=== PATIENT | female | born 1940 | race African-American/Black ===

== ENCOUNTER → 2016-09-07 | Outpatient (CLI) | payer MEDICARE, MEDICAID ==
--- NOTE | 2016-09-07 13:59 | WOMENS IMAGING REPORT ---
EXAM DESCRIPTION: BILAT SCREENING MAMMO W/CAD COMPLETED DATE/TIME: 09/07/2016 11:04 am REASON FOR STUDY: Z12.31, ROUTINE SCREENING MAMMO Z12.31 ENCNTR SCREEN MAMMOGRAM FOR MALIGNANT NEOP LASM OF NANCY COMPARISON: 2008 to 2015 TECHNIQUE: Standard craniocaudal and mediolateral oblique views of each breast recorded using [employer] l acquisition. LIMITATIONS: None. FINDINGS: No masses, calcifications or architectural distortion. No areas of suspicion. Read with the assistance of CAD. .[facility] - R2 Cenova Version 1.3 .[facility] - R2 Cenova Version 1.3 .[facility] - R2 Cenova Version 2.4 .[facility] [place] Cenova Version 2.4 .[facility] - R2 Insole [employer] Outsole Preparer Version 9.2 IMPRESSION: NORMAL MAMMOGRAM. BIRADS 1. BREAST DENSITY: c. The breasts are heterogeneously dense, which may obscure small masses. BIRAD: 1 NEGATIVE RECOMMENDATION: ROUTINE SCREENING COMMENT: The patient has been notified of the results by letter per SA requirements. Additional no tification policies are in place for contacting patient with suspicious or incomplete findings. Quality ID #[id number]: The [employer] recommends an annual screening mammogram for women aged 40 years or over. This facility utilizes a reminder system to ensure that all patients receive reminder letters, and/or direct phone calls for appointments. This includes reminders for routine scr eening mammograms, diagnostic mammograms, or other Breast Imaging Interventions when appropriate. Th is patient will be placed in the appropriate reminder system. The [employer] (ACR) has developed recommendations for screening MRI of the breast s in certain patient populations, to be used in conjunction with mammography. Breast MRI surveillanc e may be appropriate for women with more than 20% lifetime risk of developing breast cancer as deter mined by genetic testing, significant family history of the disease, or history of mantle radiation f or Hodgkins Disease. ACR Practice Guidelines 2008. TECHNICAL DOCUMENTATION: FINDING NUMBER: (1) ASSESSMENT: (1) JOB ID: [id number] [employer]- All Rights Reserved
== END ==
LOC: WI 10:32
PROVIDERS: ATTEND Internal Medicine
DX: Z12.31 Encounter for screening mammogram for malignant neoplasm of breast (principal)
CPT/HCPCS: 77067; G0202

== ENCOUNTER → 2017-09-26 | Outpatient (CLI) | payer MEDICARE, MEDICAID ==
--- NOTE | 2017-09-26 12:36 | RADIOLOGY REPORT (SQ) ---
EXAM DESCRIPTION: CHEST 2 VIEWS COMPLETED DATE/TIME: 09/26/2017 11:11 am REASON FOR STUDY: ENCOUNTER FOR OTHER PREPROCEDURAL EXAMINATION COMPARISON: October 2015 EXAM PARAMETERS: NUMBER OF VIEWS: two views TECHNIQUE: Digital Frontal and Lateral radiographic views of the chest acquired. RADIATION DOSE: NA LIMITATIONS: none FINDINGS: LUNGS AND PLEURA: No opacities, masses or pneumothorax. No pleural effusion. MEDIASTINUM AND HILAR STRUCTURES: No masses or contour abnormalities. HEART AND VASCULAR STRUCTURES: Heart normal size. No evidence for failure. Tortuous thoracic aorta is again identified. BONES: No acute findings. HARDWARE: Transvenous pacemaker is unchanged in position. OTHER: No other significant finding. IMPRESSION: NO ACUTE RADIOGRAPHIC FINDING IN THE CHEST. TECHNICAL DOCUMENTATION: JOB ID: [id number] [employer]- All Rights Reserved Reading location - IP/workstation name: [email or web address]
== END ==
LOC: RAD 10:58
PROVIDERS: ATTEND Physician Assistant
DX: Z01.818 Encounter for other preprocedural examination (principal); M32.9 Systemic lupus erythematosus, unspecified
CPT/HCPCS: 71046

== ENCOUNTER → 2017-10-07 | Outpatient (CLI) | payer MEDICARE, MEDICAID ==
[2017-10-07 12:29] LABS: HEMATOCRIT 34.3 % (36.0-47.0); HEMOGLOBIN 11.5 g/dL (12.0-15.5); MEAN CORPUSCULAR HEMOGLOBIN 27.7 pg (27.0-33.4); MEAN CORPUSCULAR HGB CONC 33.4 g/dL (32.0-36.0); MEAN CORPUSCULAR VOLUME 83 fl (80-97); PLATELET COUNT 212 10^3/uL (150-450); RED BLOOD COUNT 4.14 10^6/uL (3.72-5.28); RED CELL DISTRIBUTION WIDTH 14.8 % (11.5-14.0)
[2017-10-07 12:47] LABS: ALANINE AMINOTRANSFERASE 16 U/L (9-52); ALBUMIN 4.2 g/dL (3.5-5.0); ALKALINE PHOSPHATASE 73 U/L (38-126); ANION GAP 12 (5-19); ASPARTATE AMINO TRANSFERASE 18 U/L (14-36); BILIRUBIN,DIRECT 0.3 mg/dL (0.0-0.4); BILIRUBIN,TOTAL 0.6 mg/dL (0.2-1.3); BLOOD UREA NITROGEN 12 mg/dL (7-20); CALCIUM 9.7 mg/dL (8.4-10.2); CARBON DIOXIDE 27 mmol/L (22-30); CHLORIDE 105 mmol/L (98-107); CHOLESTEROL 184.31 mg/dL (0-200); GLUCOSE 112 mg/dL (75-110); POTASSIUM 3.6 mmol/L (3.6-5.0); SODIUM 144.1 mmol/L (137-145); TOTAL PROTEIN 8.8 g/dL (6.3-8.2); TRIGLYCERIDES 78 mg/dL (<150)
[2017-10-07 12:58] LABS: DIRECT LDL 94 mg/dL (<100)
[2017-10-07 13:07] LABS: ERYTHROCYTE SEDIMENTATION RATE 57 mm/hr (0-30)
[2017-10-07 13:08] LABS: WHITE BLOOD COUNT 1.4 10^3/uL (4.0-10.5)
[2017-10-08 11:46] LABS: PATH REVIEW PATHOLOGIST REVIEWED
== END ==
LOC: LAB 12:03
PROVIDERS: ATTEND Internal Medicine Cardiovascular Disease
DX: E78.00 Pure hypercholesterolemia, unspecified (principal); R06.02 Shortness of breath; M32.9 Systemic lupus erythematosus, unspecified; I49.3 Ventricular premature depolarization
CPT/HCPCS: 36415; 80048; 80061; 80076; 83880; 84443; 85027; 85652; 86038; 86430; 86431

== ENCOUNTER 2017-10-11 11:24 | Emergency (ER) | payer MEDICARE, MEDICAID ==
[2017-10-11 11:39] VITALS: BP 128/79
[2017-10-11] MEDS ORDERED: ASPIRIN 81 MG TABLET, CHEWABLE PO ONE (12:09)
--- NOTE | 2017-10-11 12:09 | RADIOLOGY REPORT (SQ) ---
EXAM DESCRIPTION: CHEST 2 VIEWS COMPLETED DATE/TIME: 10/11/2017 11:45 am REASON FOR STUDY: chest pain COMPARISON: None. EXAM PARAMETERS: NUMBER OF VIEWS: two views TECHNIQUE: Digital Frontal and Lateral radiographic views of the chest acquired. RADIATION DOSE: NA LIMITATIONS: none FINDINGS: LUNGS AND PLEURA: Nipple shadow overlying the right lung base. No opacities, masses or pn eumothorax. No pleural effusion. MEDIASTINUM AND HILAR STRUCTURES: Tortuous aorta. HEART AND VASCULAR STRUCTURES: Mild cardiomegaly. No evidence of failure. BONES: No acute findings. Osteopenia with old mild mid thoracic compression fractures. HARDWARE: Left subclavian pacer with leads unchanged. OTHER: No other significant finding. IMPRESSION: Mild cardiomegaly without evidence of acute cardiopulmonary disease. TECHNICAL DOCUMENTATION: JOB ID: [id number] [employer]- All Rights Reserved Reading location - IP/workstation name: [email or web address]
--- NOTE | 2017-10-11 12:10 | ER Document Report ---
ED Medical Screen (RME) - General Chief Complaint: Chest Pain > 30 Stated Complaint: CHEST PAIN Time Seen by Provider: 10/11/17 12:06 Notes: RAPID MEDICAL EVALUATION DISCLOSURE I have seen this patient as part of a Rapid Medical Evaluation and, if applicable, placed any initially appropriate orders. The patient will be seen and fully evaluated, including a full history and physical exam, by a provider ( in Main ED or Fast Track) when a room becomes available. 77-year-old female here with complaints of midsternal chest pain radiating up to the left shoulder down the left arm minimal shortness of breath lightheadedness ongoing since yesterday. She has noticed that the symptoms are worse with exertion. She has not tried anything for the symptoms. She does have a pacemaker and did see her mechanical systems control engineer last week who noted an irregular heartbeat. EXAM CTAB Irregularly irregular rhythm TRAVEL OUTSIDE OF THE [place] IN LAST 30 DAYS: No - Related Data Allergies/Adverse Reactions: denosumab [From Prolia] Allergy (Intermediate, Verified 10/11/17 11:26) "rash all over" RA med Allergy (Intermediate, Uncoded 10/11/17 11:26) "rash all over" Past Medical History - Past Medical History Cardiac Medical History: Denies: Hx Coronary Artery Disease, Hx Heart Attack, Hx Hypertension Pulmonary Medical History: Denies: Hx Asthma, Hx Bronchitis, Hx COPD, Hx Pneumonia Neurological Medical History: Denies: Hx Cerebrovascular Accident, Hx Seizures GI Medical History: Reports: Hx Ulcer - YRS AGO. Denies: Hx Hepatitis, Hx Hiatal Hernia Musculoskeltal Medical History: Reports Hx Arthritis - RA Psychiatric Medical History: Denies: Hx Depression Infectious Medical History: Denies: Hx Hepatitis Past Surgical History: Reports: Hx Hysterectomy, Hx Pacemaker - [employer]tronic. Denies: Hx Mastectomy, Hx Open Heart Surgery - Immunizations Immunizations up to date: No Hx Diphtheria, Pertussis, Tetanus Vaccination: No Physical Exam - Vital signs Vitals: Temp Pulse Resp BP Pulse Ox 98.5 F 82 20 128/79 H 98 10/11/17 11:37 10/11/17 11:37 10/11/17 11:37 10/11/17 11:37 10/11/17 11:37 Course - Vital Signs Vital signs: Temp Pulse Resp BP Pulse Ox 98.5 F 82 20 128/79 H 98 10/11/17 11:37 10/11/17 11:37 10/11/17 11:37 10/11/17 11:37 10/11/17 11:37 Doctor's Discharge - Discharge Referrals: KATIA HENLEY MD [Primary Care Provider] - Follow up as needed
[2017-10-11 12:46] LABS: HEMOGLOBIN 11.5 g/dL (12.0-15.5); MEAN CORPUSCULAR HEMOGLOBIN 27.3 pg (27.0-33.4); MEAN CORPUSCULAR HGB CONC 32.9 g/dL (32.0-36.0); MEAN CORPUSCULAR VOLUME 83 fl (80-97); PLATELET COUNT 200 10^3/uL (150-450); RED BLOOD COUNT 4.21 10^6/uL (3.72-5.28); WHITE BLOOD COUNT 1.8 10^3/uL (4.0-10.5)
[2017-10-11 12:55] LABS: ALANINE AMINOTRANSFERASE 17 U/L (9-52); ALBUMIN 4.3 g/dL (3.5-5.0); ALKALINE PHOSPHATASE 73 U/L (38-126); ANION GAP 13 (5-19); ASPARTATE AMINO TRANSFERASE 18 U/L (14-36); BILIRUBIN,DIRECT 0.3 mg/dL (0.0-0.4); BILIRUBIN,TOTAL 0.5 mg/dL (0.2-1.3); BLOOD UREA NITROGEN 12 mg/dL (7-20); CALCIUM 9.6 mg/dL (8.4-10.2); CARBON DIOXIDE 28 mmol/L (22-30); CHLORIDE 104 mmol/L (98-107); GLUCOSE 81 mg/dL (75-110); LIPASE 47.2 U/L (23-300); POTASSIUM 3.8 mmol/L (3.6-5.0); SODIUM 144.8 mmol/L (137-145); TOTAL PROTEIN 9.1 g/dL (6.3-8.2)
[2017-10-11 13:06] LABS: ABSOLUTE LYMPHOCYTES# (MANUAL) 1.2 10^3/uL (0.5-4.7); ABSOLUTE MONOCYTES # (MANUAL) 0.1 10^3/uL (0.1-1.4); ABSOLUTE NEUTROPHILS# (MANUAL) 0.4 10^3/uL (1.7-8.2); BASOPHILS % (MANUAL) 0 % (0-2); EOSINOPHILS % (MANUAL) 2 % (0-6); LYMPHOCYTES % (MANUAL) 59 % (13-45); MONOCYTES % (MANUAL) 5 % (3-13); SEGMENTED NEUTROPHILS % (MAN) 24 % (42-78); TOTAL CELLS COUNTED 100
[2017-10-11 13:24] LABS: IMMATURE MONONUCLEAR% (MANUAL) 4 % (0)
[2017-10-11 13:25] LABS: ANISOCYTOSIS SLIGHT; TOXIC GRANULATION SLIGHT
[2017-10-11 13:26] LABS: PLATELET COMMENT ADEQUATE; ROULEAUX 2+
[2017-10-11 13:27] LABS: HYPOCHROMASIA SLIGHT; POLYCHROMASIA SLIGHT
--- NOTE | 2017-10-11 13:55 | ER Document Report ---
ED General - General Chief Complaint: Chest Pain > 30 Stated Complaint: CHEST PAIN Time Seen by Provider: 10/11/17 12:06 TRAVEL OUTSIDE OF THE [place] IN LAST 30 DAYS: No - HPI Patient complains to provider of: Chest pressure Notes: Chest pressure patient coming in for evaluation chest pressure. Patient states started last night intermittent worse today therefore came to the ER for further evaluation. Patient states her doctor is Dr. Oro he was to perform some lab work though she had a low cell counts to come back to see him in a few days. Patient also has a scheduled stress test in the upcoming week. Patient denies any trauma denies any fevers chills nausea vomiting diarrhea states pain was worse with worse with exertion however while waiting to be evaluated patient burped and currently is in no pain. Patient is resting comfortably upon my evaluation - Related Data Allergies/Adverse Reactions: denosumab [From Prolia] Allergy (Intermediate, Verified 10/11/17 11:26) "rash all over" RA med Allergy (Intermediate, Uncoded 10/11/17 11:26) "rash all over" Past Medical History - Social History Smoking Status: Never Smoker Family History: Reviewed & Not Pertinent Patient has suicidal ideation: No Patient has homicidal ideation: No - Past Medical History Cardiac Medical History: Denies: Hx Coronary Artery Disease, Hx Heart Attack, Hx Hypertension Pulmonary Medical History: Denies: Hx Asthma, Hx Bronchitis, Hx COPD, Hx Pneumonia Neurological Medical History: Denies: Hx Cerebrovascular Accident, Hx Seizures Renal/ Medical History: Denies: Hx Peritoneal Dialysis GI Medical History: Reports: Hx Ulcer - YRS AGO. Denies: Hx Hepatitis, Hx Hiatal Hernia Musculoskeltal Medical History: Reports Hx Arthritis - RA Psychiatric Medical History: Denies: Hx Depression Infectious Medical History: Denies: Hx Hepatitis Past Surgical History: Reports: Hx Hysterectomy, Hx Pacemaker - [employer]tronic. Denies: Hx Mastectomy, Hx Open Heart Surgery - Immunizations Immunizations up to date: No Hx Diphtheria, Pertussis, Tetanus Vaccination: No Review of Systems - Review of Systems Constitutional: No symptoms reported EENT: No symptoms reported Cardiovascular: Chest pain Respiratory: No symptoms reported Gastrointestinal: No symptoms reported Genitourinary: No symptoms reported Female Genitourinary: No symptoms reported Musculoskeletal: No symptoms reported Skin: No symptoms reported Hematologic/Lymphatic: No symptoms reported Neurological/Psychological: No symptoms reported -: Yes All other systems reviewed and negative Physical Exam - Vital signs Vitals: Temp Pulse Resp BP Pulse Ox 98.5 F 82 20 128/79 H 98 10/11/17 11:37 10/11/17 11:37 10/11/17 11:37 10/11/17 11:37 10/11/17 11:37 Interpretation: Normal - General General appearance: Appears well, Alert - HEENT Head: Normocephalic, Atraumatic Eyes: Normal Pupils: PERRL - Respiratory Respiratory status: No respiratory distress Chest status: Nontender Breath sounds: Normal Chest palpation: Normal - Cardiovascular Rhythm: Regular Heart sounds: Normal auscultation Murmur: No - Abdominal Inspection: Normal Distension: No distension Bowel sounds: Normal Tenderness: Nontender Organomegaly: No organomegaly - Back Back: Normal, Nontender - Extremities General upper extremity: Normal inspection, Nontender, Normal color, Normal ROM , Normal temperature General lower extremity: Normal inspection, Nontender, Normal color, Normal ROM , Normal temperature, Normal weight bearing. No: David's sign - Neurological Neuro grossly intact: Yes Cognition: Normal Orientation: AAOx4 Kaitlynn Coma Scale Eye Opening: Spontaneous [place] Coma Scale Verbal: Oriented Kait[place]nn Coma Scale Motor: Obeys Commands [place] Coma Scale Total: 15 Speech: Normal Motor strength normal: LUE, RUE, LLE, RLE Sensory: Normal - Psychological Associated symptoms: Normal affect, Normal mood - Skin Skin Temperature: Warm Skin Moisture: Dry Skin Color: Normal Course - Re-evaluation Re-evalutation: 10/11/17 15:54 The patient has atypical chest pain as the patient's chest pain is not suggestive of pulmonary embolus, cardiac ischemia, aortic dissection, or other serious etiology. Given the extremely low risk of these diagnoses further testing and evaluation for these possibilities does not appear to be indicated at this time. The patient has been instructed to return if the symptoms worsen or change in any way. Was able to look at the patient's recent lab work from yesterday shows slight increase in the patient's white count unclear etiology for the patient's leukopenia however patient does have follow-up visit with her PCP for this issue. Patient agrees at this time discharge home recommend continued follow-up with her PCP - Vital Signs Vital signs: Temp Pulse Resp BP Pulse Ox 98.5 F 82 20 128/79 H 98 10/11/17 11:37 10/11/17 11:37 10/11/17 11:37 10/11/17 11:37 10/11/17 11:37 - Laboratory Result Diagrams: 10/11/17 12:21 10/11/17 12:21 Laboratory results interpreted by me: 10/11/17 10/11/17 10/11/17 12:21 12:21 12:21 WBC 1.8 L Hgb 11.5 L Hct 35.0 L RDW 15.0 H Seg Neuts % (Manual) 24 L Lymphocytes % (Manual) 59 H Immature Leukocytes % 4 H Abs Neuts (Manual) 0.4 L NT-Pro-B Natriuret Pep 532 H Total Protein 9.1 H Discharge - Discharge Clinical Impression: Chest pain, unspecified Qualifiers: Chest pain type: unspecified Qualified Code(s): R07.9 - Chest pain, unspecified Leukopenia Qualifiers: Leukopenia type: unspecified Qualified Code(s): D72.819 - Decreased white blood cell count, unspecified Condition: Good Disposition: HOME, SELF-CARE Instructions: Chest Pain of Unclear Cause ([facility]), Reflux Disease (GERD) ([facility]) Additional Instructions: Your laboratory does not show any signs of heart damage or significant etiology for your chest pain. By belching and relief of the pain he may have some underlying indigestion or acid reflux. I recommend she follow-up with your primary care physician. Laboratory studies do show that you have a low white count which actually has improved from your blood work done day prior. Please keep your appointment to see Dr. Oro for further evaluation. Return to ER for any concerning issues Referrals: KATIA HENLEY MD [EMERITUS] - Follow up as needed
--- NOTE | 2017-10-12 00:22 | EKG REPORT ---
SEVERITY:- ABNORMAL ECG - A-V DUAL-PACED COMPLEXES W/ SOME INHIBITION : Confirmed by: Isis Avendano MD 12-Oct-2017 00:21:09
== END 2017-10-11 14:26 | disposition home or self-care (01) ==
LOC: ER 11:24
DX: R07.9 Chest pain, unspecified (principal); D72.819 Decreased white blood cell count, unspecified; Z90.710 Acquired absence of both cervix and uterus; Z95.0 Presence of cardiac pacemaker
CPT/HCPCS: 93005; 99285; 36415; 83690; 85025; 80053; 84484; 83880; 71046; 93010; A9270

== ENCOUNTER → 2017-10-29 | Outpatient (CLI) | payer MEDICARE, MEDICAID ==
[~2017-10-29] MED LIST: REGADENOSON INJ 0.4 MG/5 ML DISP.SYRIN IV ONE
--- NOTE | 2017-10-30 00:01 | RADIOLOGY REPORT ---
STRESS TEST REPORT [id number] ROOM#: DATE OF SERVICE: 10/29/2017 AGE: 77Y ORDER#: [id number] REFERRING MD: KATIA HENLEY M.D. INDICATION: Preoperative cardiac clearance. PROCEDURE PERFORMED: REST/STRESS SINGLE ISOTOPE CARDIOLITE SPECT IMAGING WITH IV LEXISCAN STRESS AND GATED SPECT IMAGING. CLINICAL HISTORY: This 77-year-old female with known coronary artery disease in the RCA distribution by cath in 2006, currently has a ventricular pacemaker. CARDIAC RISK FACTORS: Include hypertension. CURRENT SYMPTOMATOLOGY: Includes vague symptom. REPORT: The patient received IV Lexiscan 0.4 mg and infused over 10 seconds then flushed. The resting heart rate was 75 BPM and increased to 90 BPM at the end of infusion. The resting blood pressure was 138/84 and decreased to 128/90 at the end of infusion. The patient had symptoms of dizziness with no hypotension. At the end of infusion she continued to have some dizziness and shortness of breath and fatigue. The resting 12-lead EKG showed ASVP, nondiagnostic. At the end of infusion same EKG pattern. Myocardial perfusion imaging was performed at rest following injection of 11.92 mCi of Cardiolite. Ten seconds after the IV Lexiscan injection, the patient was injected with 33.5 mCi of Cardiolite and flushed. Gated post stress tomographic imaging was performed 60 minutes after stress. FINDINGS: The above quality of the study is fair. The left ventricular cavity is noted to be fairly enlarged on the stress study compared to the rest study, TID ratio was 1.18 and abnormal. The SPECT images showed large areas of severe reversible ischemia in the apex, apical inferior wall (incomplete reversibility), and apical inferolateral wall (complete reversibility). And a moderate area of severe fixed perfusion defect in the basal inferoseptal wall, basal inferior wall, and basal inferolateral wall. Gated SPECT images showed no motion contraction in the basal inferior wall and severely reduced motion contraction in the apex, basal inferoseptal wall, and the inferolateral wall. The left ventricular systolic function was calculated to be 47% and mildly decreased. IMPRESSION: Myocardial perfusion imaging is abnormal. There are large areas of severe reversible ischemia in the apex, apical inferior wall, and apical inferolateral wall. There are smaller areas of fixed perfusion defect in the basal inferoseptal wall, basal inferior wall, and the basal inferolateral wall. Overall left ventricular systolic function is mildly impaired at 47% with no motion contraction in the basal inferior wall and severe reduced motion contraction in the apex, basal inferoseptal wall, and inferolateral wall. No prior study for comparison. Recommendation = cardiac cath for further risk stratification and PCI. INTERPRETING PHYSICIAN: KATIA HENLEY M.D. /: [id number] TT: [id number] ID: [id number] /: [id number] TD: [id number] JOB: [id number] cc:KATIA HENLEY M.D. > MTDD
== END ==
LOC: RAD 06:22
PROVIDERS: ATTEND Internal Medicine Cardiovascular Disease
DX: I25.10 Atherosclerotic heart disease of native coronary artery without angina pectoris (principal)
CPT/HCPCS: 93017; 78452; A9500; J2785; Q9969

== ENCOUNTER 2018-01-08 10:44 | Emergency (ER) | payer MEDICARE, MEDICAID ==
[2018-01-08 11:44] LABS: HEMATOCRIT 31.9 % (36.0-47.0); HEMOGLOBIN 10.6 g/dL (12.0-15.5); MEAN CORPUSCULAR HGB CONC 33.2 g/dL (32.0-36.0); MEAN CORPUSCULAR VOLUME 84 fl (80-97); PLATELET COUNT 204 10^3/uL (150-450); RED BLOOD COUNT 3.79 10^6/uL (3.72-5.28); WHITE BLOOD COUNT 6.6 10^3/uL (4.0-10.5)
[2018-01-08 11:48] LABS: ALANINE AMINOTRANSFERASE 8 U/L (9-52); ALKALINE PHOSPHATASE 69 U/L (38-126); ANION GAP 18 (5-19); ASPARTATE AMINO TRANSFERASE 24 U/L (14-36); BILIRUBIN,DIRECT 0.8 mg/dL (0.0-0.4); BILIRUBIN,TOTAL 1.3 mg/dL (0.2-1.3); BLOOD UREA NITROGEN 10 mg/dL (7-20); CALCIUM 8.9 mg/dL (8.4-10.2); CARBON DIOXIDE 19 mmol/L (22-30); CHLORIDE 100 mmol/L (98-107); GLUCOSE 75 mg/dL (75-110); POTASSIUM 3.5 mmol/L (3.6-5.0); SODIUM 136.9 mmol/L (137-145); TOTAL PROTEIN 9.3 g/dL (6.3-8.2)
[2018-01-08 11:49] LABS: INTERNATIONAL RATION (INR) 1.22
[2018-01-08 12:10] LABS: ABSOLUTE MONOCYTES # (MANUAL) 0.5 10^3/uL (0.1-1.4); ABSOLUTE NEUTROPHILS# (MANUAL) 2.4 10^3/uL (1.7-8.2); BASOPHILS % (MANUAL) 0 % (0-2); EOSINOPHILS % (MANUAL) 1 % (0-6); LYMPHOCYTES % (MANUAL) 24 % (13-45); MONOCYTES % (MANUAL) 7 % (3-13); NUCLEATED RED BLOOD CELLS 2 /100 WBC (0); SEGMENTED NEUTROPHILS % (MAN) 37 % (42-78); TOTAL CELLS COUNTED 100
[2018-01-08] MEDS ORDERED: NORMAL SALINE 1000 ML 1,000 ML IV ONE (12:13)
[2018-01-08 12:21] LABS: ANISOCYTOSIS 1+; OVALOCYTES SLIGHT; PLATELET COMMENT ADEQUATE; POIKILOCYTOSIS SLIGHT
[2018-01-08] MEDS ORDERED: ONDANSETRON HCL INJ/PF 4 MG/2 ML SDV IV ONE (12:22)
[2018-01-08 12:28] LABS: IMMATURE MONONUCLEAR% (MANUAL) 24 % (0)
--- NOTE | 2018-01-08 13:13 | RADIOLOGY REPORT (SQ) ---
EXAM DESCRIPTION: CHEST SINGLE VIEW COMPLETED DATE/TIME: 01/08/2018 12:43 pm REASON FOR STUDY: weakness COMPARISON: 10/11/2017 EXAM PARAMETERS: NUMBER OF VIEWS: One view. TECHNIQUE: Single frontal radiographic view of the chest acquired. RADIATION DOSE: NA LIMITATIONS: None. FINDINGS: LUNGS AND PLEURA: No opacities, masses or pneumothorax. No pleural effusion. MEDIASTINUM AND HILAR STRUCTURES: No masses. Contour normal. HEART AND VASCULAR STRUCTURES: Heart is slightly enlarged. No failure. This is stable. BONES: No acute findings. HARDWARE: Battery pack and leads are in place. OTHER: No other significant finding. IMPRESSION: Stable cardiomegaly. No acute findings. TECHNICAL DOCUMENTATION: JOB ID: [id number] [employer]- All Rights Reserved Reading location - IP/workstation name: [email or web address]
--- NOTE | 2018-01-08 14:52 | RADIOLOGY REPORT (SQ) ---
EXAM DESCRIPTION: CT SOFT TISSUE NECK WITH COMPLETED DATE/TIME: 01/08/2018 2:38 pm REASON FOR STUDY: left neck mass, tenderness COMPARISON: CT brain 10/20/2015 TECHNIQUE: Post IV contrasted scanning from skull base through lung apices with review of bone, soft tissue and lung windows. Reconstructed coronal and sagittal MPR images reviewed. All images stored on PACS. All CT scanners at this facility use dose modulation, iterative reconstruction, and/or weight based d osing when appropriate to reduce radiation dose to as low as reasonably achievable (ALARA). [facility]: Dose Right [facility]: CareDose [facility]: Dose Right [facility]: Teradose 4D [facility]: PenBlade CONTRAST TYPE AND DOSE: contrast/concentration: Isovue 350.00 mg/ml; Total Contrast Delivered: 75.0 ml; Total Saline Delivered: 55.0 ml RENAL FUNCTION: Creatinine 0.8 RADIATION DOSE: CT Rad equipment meets quality standard of care and radiation dose reduction techniq ues were employed. CTDIvol: 12.5 mGy. DLP: 398 mGy-cm. . LIMITATIONS: None. FINDINGS: SKULL BASE: Inferior brain parenchyma unremarkable. MAJOR SALIVARY GLANDS: No solid or cystic masses. No inflammatory changes. LYMPHADENOPATHY: There is mild cervical adenopathy as follows: 3 x 1.5 cm right submandibular lymph node axial image 49 1.8 x 1 cm right jugulodigastric lymph node axial image 47 4 x 2 cm left submandibular lymph node axial image 51 2 x 0.8 cm left posterior triangle lymph node axial image 42. MUCOSAL MASSES OR ASYMMETRY: No mucosal masses or asymmetry. No airway compromise LARYNX/CORDS: No abnormal findings. VASCULAR STRUCTURES: The major vessels are patent. LUNG APICES: Clear. BONES: No fracture or malalignment. No high-grade central or foraminal stenosis THYROID: Normal size. No masses. PARANASAL SINUSES: Clear. OTHER: No other significant finding. IMPRESSION: Upper cervical adenopathy. Palpable abnormality on the left likely correlates with an e nlarged left submandibular lymph node TECHNICAL DOCUMENTATION: JOB ID: [id number] Quality ID # [id number]: Final reports with documentation of one or more dose reduction techniques (e.g., Au tomated exposure control, adjustment of the mA and/or kV according to patient size, use of iterative reconstruction technique) 2010 [employer]- All Rights Reserved Reading location - IP/workstation name: [email or web address]
--- NOTE | 2018-01-08 15:48 | ER Document Report ---
ED General - General Chief Complaint: Mouth Problem Stated Complaint: MOUTH PAIN Time Seen by Provider: 01/08/18 11:12 Notes: Patient is a 77-year-old female that presents to the emergency department for chief complaint of mouth pain, nausea and vomiting. Patient states that she is overall not been feeling that well over the last several days, she recently had her teeth pulled about 1 week ago, had all of her upper teeth pulled. She has had decreased appetite as a result, because of the pain in her mouth. She describes the pain is worse on the left side of her mouth with chewing, denies having any fevers or chills, but noticed some swelling in her neck on the left side this morning as well. She denies noting any chest pain, shortness of breath, difficulty breathing, dysuria or hematuria. He has been experiencing some diarrhea associated with her nausea and vomiting. But denies having any blood in the stool, or vomiting, or abdominal pain. Past Medical History: Sick sinus syndrome status post pacemaker placement, lupus Past Surgical History: Pacemaker placement, dental extractions Social History: Denies tobacco, alcohol or drug use, currently lives at home with family. Family History: Reviewed and noncontributory for presenting illness Allergies: Reviewed, see documented allergy list. REVIEW OF SYSTEMS: Unless otherwise stated in this report the patient's positive and negative responses for review of systems for constitutional, eyes, ENT, cardiovascular, respiratory, gastrointestinal, neurological, genitourinary, musculoskeletal, and integumentary systems and related systems to the presenting problem are either as stated in the HPI or were not pertinent or were negative for the symptoms and/or complaints related to the presenting medical problem. PHYSICAL EXAMINATION: Vital signs reviewed, nursing noted reviewed. GENERAL: Elderly female and in no acute distress. HEAD: Atraumatic, normocephalic. EYES: Eyes appear normal, extraocular movements intact, sclera anicteric, conjunctiva are normal. ENT: nares patent, oropharynx clear without exudates. Moist mucous membranes. Edentulous in the upper teeth, no abscess present, noted to have cracked teeth in the lower teeth on the left, without discrete abscess noted. NECK: Normal range of motion, left-sided submandibular, and cervical lymphadenopathy, none on the right. LUNGS: Breath sounds clear to auscultation bilaterally and equal. No wheezes rales or rhonchi. HEART: Regular rate and rhythm without murmurs ABDOMEN: Soft, mild epigastric discomfort, normoactive bowel sounds. No rebound , guarding, or rigidity. No masses appreciated. EXTREMITIES: Nontender, good range of motion, no pitting or edema. NEUROLOGICAL: No focal neurological deficits. Moves all extremities spontaneously Motor and sensory grossly intact on exam. PSYCH: Normal mood, normal affect. SKIN: Warm, Dry, normal turgor, no rashes or lesions noted on exposed skin TRAVEL OUTSIDE OF THE [place] IN LAST 30 DAYS: No - Related Data Allergies/Adverse Reactions: denosumab [From Prolia] Allergy (Intermediate, Verified 10/11/17 11:26) "rash all over" RA med Allergy (Intermediate, Uncoded 10/11/17 11:26) "rash all over" Past Medical History - Social History Smoking Status: Never Smoker Family History: Reviewed & Not Pertinent Patient has suicidal ideation: No Patient has homicidal ideation: No - Past Medical History Cardiac Medical History: Denies: Hx Coronary Artery Disease, Hx Heart Attack, Hx Hypertension Pulmonary Medical History: Denies: Hx Asthma, Hx Bronchitis, Hx COPD, Hx Pneumonia Neurological Medical History: Denies: Hx Cerebrovascular Accident, Hx Seizures Renal/ Medical History: Denies: Hx Peritoneal Dialysis GI Medical History: Reports: Hx Ulcer - YRS AGO. Denies: Hx Hepatitis, Hx Hiatal Hernia Musculoskeletal Medical History: Reports Hx Arthritis - RA Psychiatric Medical History: Denies: Hx Depression Infectious Medical History: Denies: Hx Hepatitis Past Surgical History: Reports: Hx Hysterectomy, Hx Pacemaker - Medtronic. Denies: Hx Mastectomy, Hx Open Heart Surgery - Immunizations Immunizations up to date: No Hx Diphtheria, Pertussis, Tetanus Vaccination: No Physical Exam - Vital signs Vitals: Temp 99.9 F 01/08/18 11:05 Course - Re-evaluation Re-evalutation: Patient seen and examined vital signs reviewed. Laboratory data and imaging were ordered as appropriate for the patient's presenting symptoms and complaint, with consideration of any critical or life threatening conditions that may be associated with their obtained history and exam as noted above. Patient was treated with IV fluids and Zofran Results were reviewed when available and demonstrated essentially unremarkable blood work, anemia appears to be at baseline, renal function normal The patient was re-evaluated and was improved Evaluation was most consistent with gastroenteritis, lymphadenopathy likely reactive secondary to patient's multiple dental extractions, but we will treat her with an antibiotic for possible early dental infection. Patient be discharged home on Keflex, and Phenergan, advised to follow-up with her primary care physician. Results were discussed with the patient at this point, after careful consideration I feel that that patient can be discharged from the emergency department, the patient was educated treatments and reasons to return to the emergency department based on their presumed diagnosis as noted above, they were advised to followup with a primary care physician in 2-3 days. Patient was agreeable to plan of care. *Note is created using voice recognition software and may contain spelling, syntax or grammatical errors. Laboratory 01/08/18 01/08/18 01/08/18 10:50 10:50 10:50 WBC 6.6 RBC 3.79 Hgb 10.6 L Hct 31.9 L MCV 84 MCH 28.0 MCHC 33.2 RDW 17.0 H Plt Count 204 Total Counted 100 Seg Neutrophils % Not Reportable Seg Neuts % (Manual) 37 L Lymphocytes % Not Reportable Lymphocytes % (Manual) 24 Atypical Lymphs % 7 Monocytes % Not Reportable Monocytes % (Manual) 7 Eosinophils % Not Reportable Eosinophils % (Manual) 1 Basophils % Not Reportable Basophils % (Manual) 0 Immature Leukocytes % 24 H Absolute Neutrophils Not Reportable Abs Neuts (Manual) 2.4 Absolute Lymphocytes Not Reportable Abs Lymphs (Manual) 2.0 Absolute Monocytes Not Reportable Abs Monocytes (Manual) 0.5 Absolute Eosinophils Not Reportable Absolute Eos (Manual) 0.1 Absolute Basophils Not Reportable Abs Basophils (Manual) 0.0 Nucleated RBCs 2 Platelet Comment ADEQUATE Poikilocytosis SLIGHT Anisocytosis 1+ Ovalocytes SLIGHT PT 16.0 H INR 1.22 Sodium 136.9 L Potassium 3.5 L Chloride 100 Carbon Dioxide 19 L Anion Gap 18 BUN 10 Creatinine 0.79 Est GFR ( Amer) > 60 Est GFR (Non-Af Amer) > 60 Glucose 75 POC Glucose Lactic Acid Calcium 8.9 Total Bilirubin 1.3 Direct Bilirubin 0.8 H Neonat Total Bilirubin Not Reportable Neonat Direct Bilirubin Not Reportable Neonat Indirect Bili Not Reportable AST 24 ALT 8 L Alkaline Phosphatase 69 Total Protein 9.3 H Albumin 4.0 Slides for Path Review PATHOLOGIST REVIEWED 01/08/18 01/08/18 10:50 11:39 WBC RBC Hgb Hct MCV MCH MCHC RDW Plt Count Total Counted Seg Neutrophils % Seg Neuts % (Manual) Lymphocytes % Lymphocytes % (Manual) Atypical Lymphs % Monocytes % Monocytes % (Manual) Eosinophils % Eosinophils % (Manual) Basophils % Basophils % (Manual) Immature Leukocytes % Absolute Neutrophils Abs Neuts (Manual) Absolute Lymphocytes Abs Lymphs (Manual) Absolute Monocytes Abs Monocytes (Manual) Absolute Eosinophils Absolute Eos (Manual) Absolute Basophils Abs Basophils (Manual) Nucleated RBCs Platelet Comment Poikilocytosis Anisocytosis Ovalocytes PT INR Sodium Potassium Chloride Carbon Dioxide Anion Gap BUN Creatinine Est GFR ( Amer) Est GFR (Non-Af Amer) Glucose POC Glucose 72 Lactic Acid 1.8 Calcium Total Bilirubin Direct Bilirubin Neonat Total Bilirubin Neonat Direct Bilirubin Neonat Indirect Bili AST ALT Alkaline Phosphatase Total Protein Albumin Slides for Path Review - Vital Signs Vital signs: Temp Pulse Resp BP Pulse Ox 99.9 F 23 H 124/79 96 01/08/18 11:05 01/08/18 15:00 01/08/18 14:01 01/08/18 15:00 - Laboratory Result Diagrams: 01/08/18 10:50 01/08/18 10:50 Laboratory results interpreted by me: 01/08/18 01/08/18 01/08/18 10:50 10:50 10:50 Hgb 10.6 L Hct 31.9 L RDW 17.0 H Seg Neuts % (Manual) 37 L Immature Leukocytes % 24 H PT 16.0 H Sodium 136.9 L Potassium 3.5 L Carbon Dioxide 19 L Direct Bilirubin 0.8 H ALT 8 L Total Protein 9.3 H - EKG Interpretation by Me Additional EKG results interpreted by me: EKG demonstrates ventricular paced rhythm, with a ventricular rate of 94 bpm, QTC 551 ms, left axis deviation, T wave inversions in leads I, aVL, this is compared with prior EKG from 10/11/2017 without significant change. Discharge - Discharge Clinical Impression: Dental infection, Cervical lymphadenitis, Gastroenteritis Condition: Stable Disposition: HOME, SELF-CARE Instructions: Dental Infection or Abscess ([facility]), Gastroenteritis (adult) ([facility]) Additional Instructions: Please return to the emergency department if you have any worsening, or concern of your symptoms. Please return to the emergency department if you develop chest pain, difficulty breathing, severe abdominal pain, or ongoing vomiting. Please follow-up with your primary care physician in 2-3 days and any other recommended physicians. If prescribed, take all medications as directed. If you have any questions or concerns do not hesitate to return the emergency department for evaluation. Prescriptions: Cephalexin Monohydrate [Keflex 500 mg Capsule] 500 mg PO TID #21 capsule Promethazine HCl [Phenergan 25 mg Tablet] 0.5 tab PO Q6H PRN #15 tablet PRN Reason: Referrals: KATIA HENLEY MD [Primary Care Provider] - Follow up in 3-5 days
[2018-01-08 16:53] LABS: APPEARANCE,URINE CLEAR; BILIRUBIN,URINE NEGATIVE (NEGATIVE); COLOR,URINE YELLOW; GLUCOSE, URINE NEGATIVE (NEGATIVE); KETONES,URINE 80 mg/dL (NEGATIVE); LEUKOCYTE ESTERASE,URINE NEGATIVE (NEGATIVE); NITRITE,URINE NEGATIVE (NEGATIVE); PROTEIN,URINE 30 mg/dL (NEGATIVE); URINE SPECIFIC GRAVITY 1.038
[2018-01-08 16:59] VITALS: BP 137/93
--- NOTE | 2018-01-08 19:37 | EKG REPORT ---
SEVERITY:- ABNORMAL ECG - ATRIAL-SENSED VENTRICULAR-PACED COMPLEXES : Confirmed by: Isis Avendano MD 08-Jan-2018 19:36:31
[2018-01-09 15:32] LABS: PATH REVIEW PATHOLOGIST REVIEWED
== END 2018-01-08 16:52 | disposition home or self-care (01) ==
LOC: ER 10:44
DX: K52.9 Noninfective gastroenteritis and colitis, unspecified (principal); I88.9 Nonspecific lymphadenitis, unspecified; K04.7 Periapical abscess without sinus; K13.79 Other lesions of oral mucosa; R11.2 Nausea with vomiting, unspecified; Z98.818 Other dental procedure status; Z95.0 Presence of cardiac pacemaker; Z90.710 Acquired absence of both cervix and uterus
CPT/HCPCS: 93005; 99284; 96361; 51701; 96374; 36415; 87040; 87086; 82962; 85025; 85610; 80053; 81001; 83605; 71045; 70491; 93010; J2405

== ENCOUNTER 2018-01-09 16:36 | Emergency (ER) | payer MEDICARE, MEDICAID ==
[2018-01-09 16:54] VITALS: BP 105/76
[2018-01-09 19:47] LABS: HEMATOCRIT 30.4 % (36.0-47.0); HEMOGLOBIN 10.2 g/dL (12.0-15.5); MEAN CORPUSCULAR HGB CONC 33.5 g/dL (32.0-36.0); MEAN CORPUSCULAR VOLUME 84 fl (80-97); PLATELET COUNT 191 10^3/uL (150-450); RED BLOOD COUNT 3.63 10^6/uL (3.72-5.28); RED CELL DISTRIBUTION WIDTH 17.2 % (11.5-14.0); WHITE BLOOD COUNT 10.8 10^3/uL (4.0-10.5)
[2018-01-09 19:56] LABS: INTERNATIONAL RATION (INR) 1.19; PROTHROMBIN TIME 15.7 SEC (11.4-15.4)
[2018-01-09 19:57] LABS: FIBRINOGEN 388 mg/dL (209-497); PARTIAL THROMBOPLASTIN TIME 33.4 SEC (23.5-35.8)
[2018-01-09 20:01] LABS: ALANINE AMINOTRANSFERASE 13 U/L (9-52); ALBUMIN 3.7 g/dL (3.5-5.0); ALKALINE PHOSPHATASE 57 U/L (38-126); ANION GAP 12 (5-19); ASPARTATE AMINO TRANSFERASE 23 U/L (14-36); BILIRUBIN,DIRECT 0.5 mg/dL (0.0-0.4); BILIRUBIN,TOTAL 0.8 mg/dL (0.2-1.3); BLOOD UREA NITROGEN 15 mg/dL (7-20); CARBON DIOXIDE 25 mmol/L (22-30); CHLORIDE 98 mmol/L (98-107); GLUCOSE 95 mg/dL (75-110); POTASSIUM 3.2 mmol/L (3.6-5.0); SODIUM 135.4 mmol/L (137-145); TOTAL PROTEIN 8.7 g/dL (6.3-8.2)
[2018-01-09 20:32] LABS: ABSOLUTE LYMPHOCYTES# (MANUAL) 2.9 10^3/uL (0.5-4.7); ABSOLUTE MONOCYTES # (MANUAL) 0.3 10^3/uL (0.1-1.4); ABSOLUTE NEUTROPHILS# (MANUAL) 1.9 10^3/uL (1.7-8.2); BASOPHILS % (MANUAL) 0 % (0-2); EOSINOPHILS % (MANUAL) 0 % (0-6); IMMATURE MONONUCLEAR% (MANUAL) 52 % (0); LYMPHOCYTES % (MANUAL) 17 % (13-45); MONOCYTES % (MANUAL) 3 % (3-13); SEGMENTED NEUTROPHILS % (MAN) 18 % (42-78); TOTAL CELLS COUNTED 100; TOXIC GRANULATION SLIGHT
[2018-01-09 20:33] LABS: ANISOCYTOSIS 1+; HYPOCHROMASIA SLIGHT; OVALOCYTES SLIGHT; PLATELET COMMENT ADEQUATE; POIKILOCYTOSIS SLIGHT
[2018-01-09] MEDS ORDERED: POTASSIUM CHLORIDE 10 MEQ CAPSULE.ER PO ONE (20:59)
--- NOTE | 2018-01-09 21:01 | ER Document Report ---
ED General - General Chief Complaint: Abnormal Lab Results Stated Complaint: NAUSEA,WEAKNESS Time Seen by Provider: 01/09/18 18:17 Notes: Patient is a 77-year-old female that presents to the emergency department for chief complaint of abnormal labs. Patient was seen in the emergency department yesterday, for nausea and overall not feeling well, was noted to have increased lymphocytes in her blood, this was sent for evaluation by the pathologist, who noted that the patient a greater than 20% blasts in her blood, patient was called, to come back to the emergency department to be reevaluated, given this is likely acute leukemia. Patient states she is still been feeling not well, but denies any further vomiting, denies any pain at this time. Past Medical History: Sick sinus syndrome Past Surgical History: Pacemaker placement, multiple dental extractions Social History: Denies current tobacco, alcohol or drug use, lives at home with family Family History: Reviewed and noncontributory for presenting illness Allergies: Reviewed, see documented allergy list. REVIEW OF SYSTEMS: Unless otherwise stated in this report the patient's positive and negative responses for review of systems for constitutional, eyes, ENT, cardiovascular, respiratory, gastrointestinal, neurological, genitourinary, musculoskeletal, and integumentary systems and related systems to the presenting problem are either as stated in the HPI or were not pertinent or were negative for the symptoms and/or complaints related to the presenting medical problem. PHYSICAL EXAMINATION: Vital signs reviewed, nursing noted reviewed. GENERAL: Elderly female, in no acute distress HEAD: Atraumatic, normocephalic. EYES: Eyes appear normal, extraocular movements intact, sclera anicteric, conjunctiva are normal. ENT: nares patent, oropharynx clear without exudates. Moist mucous membranes. NECK: Normal range of motion, supple without lymphadenopathy LUNGS: Breath sounds clear to auscultation bilaterally and equal. No wheezes rales or rhonchi. HEART: Regular rate and rhythm without murmurs ABDOMEN: Soft, nontender, normoactive bowel sounds. No rebound, guarding, or rigidity. No masses appreciated. EXTREMITIES: Nontender, good range of motion, no pitting or edema. NEUROLOGICAL: No focal neurological deficits. Moves all extremities spontaneously Motor and sensory grossly intact on exam. PSYCH: Normal mood, normal affect. SKIN: Warm, Dry, normal turgor, no rashes or lesions noted on exposed skin TRAVEL OUTSIDE OF THE [place] IN LAST 30 DAYS: No - Related Data Allergies/Adverse Reactions: denosumab [From Prolia] Allergy (Intermediate, Verified 01/09/18 17:10) "rash all over" RA med Allergy (Intermediate, Uncoded 01/09/18 17:10) "rash all over" Past Medical History - Social History Smoking Status: Never Smoker Family History: Reviewed & Not Pertinent - Past Medical History Cardiac Medical History: Denies: Hx Coronary Artery Disease, Hx Heart Attack, Hx Hypertension Pulmonary Medical History: Denies: Hx Asthma, Hx Bronchitis, Hx COPD, Hx Pneumonia Neurological Medical History: Denies: Hx Cerebrovascular Accident, Hx Seizures Renal/ Medical History: Denies: Hx Peritoneal Dialysis GI Medical History: Reports: Hx Ulcer - YRS AGO. Denies: Hx Hepatitis, Hx Hiatal Hernia Musculoskeletal Medical History: Reports Hx Arthritis - RA Psychiatric Medical History: Denies: Hx Depression Infectious Medical History: Denies: Hx Hepatitis Past Surgical History: Reports: Hx Hysterectomy, Hx Pacemaker - [employer]tr[employer]. Denies: Hx Mastectomy, Hx Open Heart Surgery - Immunizations Immunizations up to date: No Hx Diphtheria, Pertussis, Tetanus Vaccination: No Physical Exam - Vital signs Vitals: Temp Pulse Resp BP Pulse Ox 98.2 F 99 18 105/76 93 01/09/18 16:50 01/09/18 16:50 01/09/18 16:50 01/09/18 16:50 01/09/18 16:50 Course - Re-evaluation Re-evalutation: Patient seen and examined vital signs reviewed. Laboratory data and imaging were ordered as appropriate for the patient's presenting symptoms and complaint, with consideration of any critical or life threatening conditions that may be associated with their obtained history and exam as noted above. Patient was treated with potassium replacement Results were reviewed when available and demonstrated mild hypokalemia, increased percent of lymphocytes, no neutropenia The patient was re-evaluated and was stable Evaluation was most consistent with acute leukemia, this was discussed with Dr. Sina Pollard at [facility] oncology, recommended that if the patient did not have acute DIC, which she did not based on her blood work, normal fibrinogen , PTT and PT, that she can be discharged to follow-up, the patient's information was given to him, and they will call to schedule an appointment for the patient early next week, patient was agreeable to this plan of care made aware. I also did discuss this with the oncologist that was environmental projects advisor from this facility, who did recommend calling [facility] or another tertiary facility given that the patient had acute leukemia and required specialized treatment. Results were discussed with the patient at this point, after careful consideration I feel that that patient can be discharged from the emergency department, the patient was educated treatments and reasons to return to the emergency department based on their presumed diagnosis as noted above, they were advised to followup with a primary care physician in 2-3 days. Patient was agreeable to plan of care. *Note is created using voice recognition software and may contain spelling, syntax or grammatical errors. Laboratory 01/09/18 01/09/18 01/09/18 19:30 19:30 19:30 WBC 10.8 H RBC 3.63 L Hgb 10.2 L Hct 30.4 L MCV 84 MCH 28.0 MCHC 33.5 RDW 17.2 H Plt Count 191 Total Counted 100 Seg Neutrophils % Not Reportable Seg Neuts % (Manual) 18 L Lymphocytes % Not Reportable Lymphocytes % (Manual) 17 Atypical Lymphs % 10 Monocytes % Not Reportable Monocytes % (Manual) 3 Eosinophils % Not Reportable Eosinophils % (Manual) 0 Basophils % Not Reportable Basophils % (Manual) 0 Immature Leukocytes % 52 H Absolute Neutrophils Not Reportable Abs Neuts (Manual) 1.9 Absolute Lymphocytes Not Reportable Abs Lymphs (Manual) 2.9 Absolute Monocytes Not Reportable Abs Monocytes (Manual) 0.3 Absolute Eosinophils Not Reportable Absolute Eos (Manual) 0.0 Absolute Basophils Not Reportable Abs Basophils (Manual) 0.0 Toxic Granulation SLIGHT Platelet Comment ADEQUATE Hypochromasia SLIGHT Poikilocytosis SLIGHT Anisocytosis 1+ Microcytosis SLIGHT Ovalocytes SLIGHT PT 15.7 H INR 1.19 APTT 33.4 Fibrinogen 388 Sodium 135.4 L Potassium 3.2 L Chloride 98 Carbon Dioxide 25 Anion Gap 12 BUN 15 Creatinine 0.86 Est GFR ( Amer) > 60 Est GFR (Non-Af Amer) > 60 Glucose 95 Calcium 9.0 Total Bilirubin 0.8 Direct Bilirubin 0.5 H Neonat Total Bilirubin Not Reportable Neonat Direct Bilirubin Not Reportable Neonat Indirect Bili Not Reportable AST 23 ALT 13 Alkaline Phosphatase 57 Total Protein 8.7 H Albumin 3.7 - Vital Signs Vital signs: Temp Pulse Resp BP Pulse Ox 98.2 F 99 18 105/76 93 01/09/18 16:50 01/09/18 16:50 01/09/18 16:50 01/09/18 16:50 01/09/18 16:50 - Laboratory Result Diagrams: 01/09/18 19:30 01/09/18 19:30 Laboratory results interpreted by me: 01/09/18 01/09/18 01/09/18 19:30 19:30 19:30 WBC 10.8 H RBC 3.63 L Hgb 10.2 L Hct 30.4 L RDW 17.2 H Seg Neuts % (Manual) 18 L Immature Leukocytes % 52 H PT 15.7 H Sodium 135.4 L Potassium 3.2 L Direct Bilirubin 0.5 H Total Protein 8.7 H Discharge - Discharge Clinical Impression: Hypokalemia Leukemia Qualifiers: Leukemia type: unspecified Leukemia Active/Remission status: without remission Qualified Code(s): C95.90 - Leukemia, unspecified not having achieved remission Condition: Stable Disposition: HOME, SELF-CARE Instructions: Anemia ([facility]) Additional Instructions: please follow-up with [facility] DR. POLLARD. His office will call for follow- up appointment tomorrow, and hopefully see you this upcoming Saturday. Referrals: HUMZA DURAND MD [Primary Care Provider] - Follow up as needed
== END 2018-01-09 21:22 | disposition home or self-care (01) ==
LOC: ER 16:36
DX: E87.6 Hypokalemia (principal); C95.90 Leukemia, unspecified not having achieved remission; R11.0 Nausea; I49.5 Sick sinus syndrome; Z95.0 Presence of cardiac pacemaker; Z88.8 Allergy status to other drugs, medicaments and biological substances
CPT/HCPCS: 99285; 36415; 85025; 85384; 85610; 85730; 80053; A9270

== ENCOUNTER 2018-02-10 07:14 | Day surgery (SDC) | payer MEDICARE, MEDICAID ==
[~2018-02-10 07:14] MED LIST changes: +CEFAZOLIN 1 GM/D5W RTU 1 GM/50 ML RTUPB IV PRN; +DIAZEPAM 5 MG TABLET PO PRN; +OXYCODONE-ACETAMINOPHEN 5-325 MG TABLET PO PRN; -REGADENOSON INJ 0.4 MG/5 ML DISP.SYRIN IV ONE
[2018-02-10] MEDS ORDERED: CEFAZOLIN 1 GM/D5W RTU 1 GM/50 ML RTUPB IV ONE (07:31)
[2018-02-10] MEDS ORDERED: DIAZEPAM 5 MG TABLET ONE (07:31)
[2018-02-10] MEDS ORDERED: OXYCODONE-ACETAMINOPHEN 5-325 MG TABLET ONE (07:31)
[2018-02-10 08:39] LABS: HEMATOCRIT 27.5 % (36.0-47.0); HEMOGLOBIN 9.3 g/dL (12.0-15.5); MEAN CORPUSCULAR VOLUME 88 fl (80-97); PLATELET COUNT 119 10^3/uL (150-450); RED BLOOD COUNT 3.11 10^6/uL (3.72-5.28); RED CELL DISTRIBUTION WIDTH 16.3 % (11.5-14.0); WHITE BLOOD COUNT 2.5 10^3/uL (4.0-10.5)
--- NOTE | 2018-02-10 08:56 | RADIOLOGY REPORT (SQ) ---
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 NUMBER OF VIEWS: One view. TECHNIQUE: Single frontal radiographic view of the chest acquired. LIMITATIONS: None. FINDINGS: LUNGS AND PLEURA: No opacities, masses or pneumothorax. No pleural effusion. MEDIASTINUM AND HILAR STRUCTURES: No masses. Contour normal. HEART AND VASCULAR STRUCTURES: Heart enlarged without failure. Normal vasculature. BONES: No acute findings. HARDWARE: Pacemaker. OTHER: No other significant finding. IMPRESSION: HEART ENLARGED WITHOUT FAILURE. NO OTHER SIGNIFICANT RADIOGRAPHIC FINDING IN THE CHEST. TECHNICAL DOCUMENTATION: JOB ID: [id number] [employer]- All Rights Reserved Reading location - IP/workstation name: [email or web address]
[2018-02-10 08:59] LABS: ANION GAP 11 (5-19); BLOOD UREA NITROGEN 12 mg/dL (7-20); CALCIUM 8.8 mg/dL (8.4-10.2); CARBON DIOXIDE 24 mmol/L (22-30); CHLORIDE 105 mmol/L (98-107); GLUCOSE 91 mg/dL (75-110); POTASSIUM 4.1 mmol/L (3.6-5.0); SODIUM 139.7 mmol/L (137-145)
[2018-02-10] MEDS ORDERED: MIDAZOLAM 2 MG/2 ML INJ ONE (10:03)
[2018-02-10] MEDS ORDERED: LIDOCAINE 0.5% INJ-PF (5 MG/ML) 50 ML SDV ONE (10:03)
[2018-02-10] MEDS ORDERED: BACITRACIN INJ 50,000 UNIT VIAL ONE (10:04)
[2018-02-10] MEDS ORDERED: FENTANYL CITRATE INJ/PF 100 MCG/2 ML AMPUL ONE (10:04)
--- NOTE | 2018-02-10 11:25 | Discharge Summary ---
Discharge Summary (SDC) - Discharge Final Diagnosis: #1 myeloid leukemia. 2. Lupus. 3. History of DVT. 4. Hypertension Date of Surgery: 02/10/18 Discharge Date: 02/10/18 Condition: Fair Treatment or Instructions: Discharge home [after recovery per ASU criteria]. Diet,as tolerated, when fully awake advance as tolerated. Activities within moderation encouraged. Follow up in my office by appointment in about [1 week]. Call for appointment. Leave wounds [covered], [keep clean and dry, until office visit in 1 week]. Hold of on school/work [until evaluation in office]. Meds per med rec. May shower [in 48 hrs], [try to keep operated area as dry as possible]. Referrals: HUMZA UDRAND MD [Primary Care Provider] - Respiratory Treatments at Home: Deep Breathing/Coughing Discharge Activity: Activity As Tolerated Report the Following to Your Physician Immediately: Shortness of Breath, Unusual Bleeding
--- NOTE | 2018-02-10 11:25 | Discharge Summary ---
Discharge Summary (SDC) - Discharge Final Diagnosis: #1 myeloid leukemia. 2. Lupus. 3. History of DVT. 4. Hypertension Date of Surgery: 02/10/18 Discharge Date: 02/10/18 Condition: Fair Treatment or Instructions: Discharge home [after recovery per ASU criteria]. Diet,as tolerated, when fully awake advance as tolerated. Activities within moderation encouraged. Follow up in my office by appointment in about [1 week]. Call for appointment. Leave wounds [covered], [keep clean and dry, until office visit in 1 week]. Hold of on school/work [until evaluation in office]. Meds per med rec. May shower [in 48 hrs], [try to keep operated area as dry as possible]. Referrals: HUMZA DURAND MD [Primary Care Provider] - Discharge Diet: As Tolerated Respiratory Treatments at Home: Deep Breathing/Coughing Discharge Activity: Activity As Tolerated Report the Following to Your Physician Immediately: Shortness of Breath, Unusual Bleeding
--- NOTE | 2018-02-10 11:28 | Operative Report ---
Operative Report DATE OF SURGERY: 02/10/18 PREOPERATIVE DIAGNOSIS: #1 myeloid leukemia. 2. Lupus. 3. History of DVT. 4. Hypertension POSTOPERATIVE DIAGNOSIS: #1 myeloid leukemia. 2. Lupus. 3. History of DVT. 4. Hypertension OPERATION: 1. Ultrasound evaluation of the right internal jugular vein. 2. Port-A-Cath insertion via real time ultrasound guidance into the right internal jugular vein. 3. Angiogram and interpretation. SURGEON: GAY MONTANEZ BIN FILLER: None. ANESTHESIA: Moderate Sedation TISSUE REMOVED OR ALTERED: Not applicable. COMPLICATIONS: None. ESTIMATED BLOOD LOSS: 5 mL. INTRAOPERATIVE FINDINGS: Of a left-sided defibrillator. Right-sided internal jugular about 1.5 cm in diameter. Sufficient for supporting a Port-A-Cath. Tip of Port-A-Cath just down in the right atrium. Smooth flow of contrast into the right atrium through the superior vena cava. Easy egress of blood and ingress of heparinized solution. Satisfactory appearance of right apex at the conclusion of the procedure. PROCEDURE: After obtaining informed consent, the patient was taken to the Retention Manager and positioned supine. The [right] neck and chest were prepared with chlorhexidine and draped out with sterile linen. After the " universal timeout", in which it was verified that the patient continued to receive antibiotic, the procedure commenced. A steriley sheathed ultrasound probe was used to evaluate the [ right] internal jugular vein. Local anesthesia was infiltrated adjacent to the probe. Access into the [right] internal jugular vein was obtained using a micropuncture needle, followed by micropuncture wire and then a micropuncture catheter. This was followed by introduction of a 0.035 guidewire the tip of which was placed down into the inferior vena cava . The port sites was marked , locally anesthetized and incision made. Dissection now proceeded to the deep subcutaneous subcutaneous tissues so that a pocket for the port was made. Meticulous hemostasis was secured and the catheter was tunneled between the 2 incisions. Proximally, the catheter was now positioned using a peel-away sheath. Distally the catheter was tailored to an appropriate length and then mated to the port using the contained fixating device. The port was now placed in the pocket and the catheter optimally positioned. The port was accessed with a Burger needle and an angiogram done under digital subtraction. The findings as dictated. With adequate and satisfactory positioning, both lumens of the chamber were irrigated with heparinized solution. The wounds were now closed using interrupted 3-0 PDS to the subcutaneous tissues and a continuous subcuticular suture of 4-0 Monocryl to the skin. These are reinforced with Steri-Strips over benzoin and then dressings applied. Time: 0.1 minute. Dose: 4.62 Mely cid. Contrast: 5 Mls. Isovue 300. Copies of the dictated operative report for Dr. Gay Nails MD.
[2018-02-10 12:11] VITALS: BP 128/80
--- NOTE | 2018-02-10 13:54 | RADIOLOGY REPORT (SQ) ---
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 FLUOROSCOPY TIME: Less than 0.1 Minutes. 11 images saved to PACS. TECHNIQUE: Intra-operative images acquired during surgical procedure to evaluate progress. NUMBER OF IMAGES: 11 images. LIMITATIONS: None. FINDINGS: Images of the chest acquired during catheter placement. IMPRESSION: IMAGE(S) OBTAINED DURING PROCEDURE. COMMENT: Quality ID [id number]: Final reports for procedures using fluoroscopy that document radiation exp osure indices, or exposure time and number of fluorographic images (if radiation exposure indices are not available) Please consult full operative report of the attending physician for description of the procedure. TECHNICAL DOCUMENTATION: JOB ID: [id number] [employer]- All Rights Reserved Reading location - IP/workstation name: [email or web address]
== END 2018-02-10 12:10 | disposition home or self-care (01) ==
LOC: CCL 07:14
PROVIDERS: ATTEND Surgery
DX: C92.00 Acute myeloblastic leukemia, not having achieved remission (principal); M81.0 Age-related osteoporosis without current pathological fracture; F32.9 Major depressive disorder, single episode, unspecified; K21.9 Gastro-esophageal reflux disease without esophagitis; I10 Essential (primary) hypertension; L93.0 Discoid lupus erythematosus; E78.5 Hyperlipidemia, unspecified; E55.9 Vitamin D deficiency, unspecified; Z86.718 Personal history of other venous thrombosis and embolism; Z79.899 Other long term (current) drug therapy; Z01.818 Encounter for other preprocedural examination
CPT/HCPCS: 36415; 85027; 80048; 36561; 76937; 77001; 71045; C1752; C1788; Q9967; J2250; J3490 ×2; J0690; A9270 ×2; J3010; J1644

== ENCOUNTER 2018-05-15 08:36 | Emergency (ER) | payer MEDICARE, MEDICAID ==
[2018-05-15] MEDS ORDERED: NORMAL SALINE 500 ML IV PRN (09:13)
--- NOTE | 2018-05-15 09:28 | ER Document Report ---
ED General - General Stated Complaint: BODY PAIN Time Seen by Provider: 05/15/18 08:44 Primary Care Provider: CARLA LUA MD [Primary Care Provider] - Follow up tomorrow HUMZA DURAND MD [COMMUNITY BASED STAFF] - Follow up tomorrow CEDAR DALI MORENO PA-C [ALLIED HEALTH PROFESSIONAL] - Follow up in 3-5 days Mode of Arrival: Medic TRAVEL OUTSIDE OF THE [place] IN LAST 30 DAYS: No - HPI Notes: 78-year-old female with a history of leukemia presents to the ED for complaints of pain all over and has not had a bowel movement in the last 3 days however is passing flatus with slight generalized abdominal pain. Patient denies any fevers, nausea vomiting chills chest pain or shortness of breath. Patient is taking oxycodone daily for the last several years. Patient was recently diagnosed with leukemia in January 2018 does have a port and had chemo infusion therapy approximately 10 days ago. Denies any rashes. My patient is [place] [facility] as well as Dr. Bryson Wesley. Denies fevers, chills, chest pain,palpitations, shortness of breath, dyspnea, nausea, vomiting, diarrhea, hematuria,blurred vision, double vision, loss of vision, speech changes, LH, dizziness, syncope, headaches, wheezing, ST, URI, neck pain, weakness, bowel or bladder dysfunction, saddle anesthesia, numbness or tingling in bilateral upper or lower extremities equally, muscle paralysis, weakness in bilateral upper or lower extremities equally or rash. - Related Data Allergies/Adverse Reactions: denosumab [From Prolia] Allergy (Intermediate, Verified 01/09/18 17:10) "rash all over" RA med Allergy (Intermediate, Uncoded 01/09/18 17:10) "rash all over" Past Medical History - General Information source: Patient - Social History Smoking Status: Never Smoker Family History: Reviewed & Not Pertinent - Past Medical History Cardiac Medical History: Denies: Hx Coronary Artery Disease, Hx Heart Attack, Hx Hypertension Pulmonary Medical History: Denies: Hx Asthma, Hx Bronchitis, Hx COPD, Hx Pneumonia Neurological Medical History: Denies: Hx Cerebrovascular Accident, Hx Seizures Renal/ Medical History: Denies: Hx Peritoneal Dialysis GI Medical History: Reports: Hx Ulcer - YRS AGO. Denies: Hx Hepatitis, Hx Hiatal Hernia Musculoskeletal Medical History: Reports Hx Arthritis - RA Psychiatric Medical History: Denies: Hx Depression Infectious Medical History: Denies: Hx Hepatitis Past Surgical History: Reports: Hx Hysterectomy, Hx Pacemaker - Medtronic. Denies: Hx Mastectomy, Hx Open Heart Surgery - Immunizations Immunizations up to date: No Hx Diphtheria, Pertussis, Tetanus Vaccination: No Review of Systems - Review of Systems Constitutional: See HPI EENT: No symptoms reported Cardiovascular: No symptoms reported Respiratory: No symptoms reported Gastrointestinal: See HPI Genitourinary: No symptoms reported Female Genitourinary: No symptoms reported Musculoskeletal: No symptoms reported Skin: No symptoms reported Hematologic/Lymphatic: No symptoms reported Neurological/Psychological: No symptoms reported Physical Exam - Vital signs Vitals: Temp Pulse BP Pulse Ox 98.9 F 95 134/79 H 98 05/15/18 08:43 05/15/18 08:43 05/15/18 08:43 05/15/18 08:43 - Notes Notes: PHYSICAL EXAMINATION: GENERAL: Well-appearing, well-nourished and in no mild distress HEAD: Atraumatic, normocephalic. EYES: Pupils equal round and reactive to light, extraocular movements intact, conjunctiva are normal. ENT: Nares patent, oropharynx clear without exudates. Moist mucous membranes. NECK: Normal range of motion, supple without lymphadenopathy LUNGS: Breath sounds clear to auscultation bilaterally and equal. No wheezes rales or rhonchi. right chest wall port without erythema, induration or swelling. HEART: Regular rate and rhythm without murmurs ABDOMEN: Soft, nontender, nondistended abdomen. No guarding, no rebound. No masses appreciated. no cva tenderness bilaterally. Female : deferred Musculoskeletal: Normal range of motion, no pitting or edema. No cyanosis. NEUROLOGICAL: Cranial nerves grossly intact. Normal speech, normal gait. Normal sensory, motor exams PSYCH: Normal mood, normal affect. SKIN: Warm, Dry, normal turgor, no rashes or lesions noted. Course - Re-evaluation Re-evalutation: 05/15/18 14:18 Afebrile, vitals stable and in no distress presents for evaluation of generalized body aches and reports she has not had a bowel movement in the last 3 days however she is passing flatus. CBC does show a neutropenia of 1, ANC less than 500. Patient is actively receiving chemotherapy for leukemia. CMP unremarkable, lipase normal. Chest x-ray, initial troponin all unremarkable. EKG negative for acute STEMI or non-ST segment elevations. CT abdomen pelvis does show diverticulosis however does not show diverticulitis. Does show a significant amount of stool in colon, no obstruction or fecal impaction. Patient given IV fluids and morphine for pain control, influenza was negative. On reevaluation patient states her pain has resolved. Patient also reports she has not been taking her oxycodone consistently as she typically takes which is at least 3 times a day. Urinalysis does show slight dehydration with proteinur ia, no leukocyte Estrace. Patient on reevaluation remains afebrile. consulted with ELENITA Pickard, who is a provider at [facility] in [place] where patient is managed for her leukemia at 1418. After reviewing patient's chart, Felicitas stated stated pt's wbc was 1.2 in the office. does not expect her neutropenia to "get better". her anc has been below 500 consistently at their office. States that she will see patient in office for reevaluation advised to not give her any laxative, Fleet enema for her constipation to have her increase hydration, drink prune juice, etc. discussed all results with patient patient agreeable with plan of care is to be discharged home with understanding to follow-up with oncologist as well as PCP, patient is in understanding as well as her son being present that if symptoms become worse to return to the ED. Patient and son agree with plan of care and agree with plan of care. I have reevaluated this patient multiple times and no significant life threatening changes, no signs of toxicity, sepsis or peritonitis are noted. The patient, her son and I have discussed the diagnosis and risks, and we agree with discharging home and close follow-up. We also discussed returning to the Emergency Department immediately if new or worsening symptoms occur with the understanding that symptoms and presentations can change. At this time will discharge with return precautions and follow-up recommendations. Verbal discharge instructions given a the bedside and opportunity for questions given. We have discussed the symptoms which are most concerning (e.g., vomiting, fever, change in level consciousness, worsening abdominal pain, etc) that necessitate immediate return. Medication warnings reviewed. All questions and concerns answered by this provider. Patient is in agreement with this plan and has verbalized understanding of return precautions and the need for primary care follow-up in the next 24-72 hours. Patient verbalized understanding of plan of care and agree with plan of care. - Vital Signs Vital signs: Temp Pulse Resp BP Pulse Ox 98.9 F 95 13 129/66 H 98 05/15/18 08:43 05/15/18 08:43 05/15/18 13:01 05/15/18 13:00 05/15/18 13:01 - Laboratory Result Diagrams: 05/15/18 10:45 05/15/18 10:45 Laboratory results interpreted by me: 05/15/18 05/15/18 05/15/18 09:54 10:45 10:45 WBC 1.0 L* RBC 2.72 L Hgb 8.6 L Hct 25.6 L RDW 17.5 H Plt Count 145 L Seg Neuts % (Manual) 40 L Lymphocytes % (Manual) 56 H Monocytes % (Manual) 0 L Abs Neuts (Manual) 0.4 L Abs Monocytes (Manual) 0.0 L Est GFR (Non-Af Amer) 55 L Lactic Acid AST 12 L Lipase 17.8 L Urine Protein 30 H Urine Ketones TRACE H Urine Urobilinogen 4.0 H 05/15/18 10:45 WBC RBC Hgb Hct RDW Plt Count Seg Neuts % (Manual) Lymphocytes % (Manual) Monocytes % (Manual) Abs Neuts (Manual) Abs Monocytes (Manual) Est GFR (Non-Af Amer) Lactic Acid 0.6 L AST Lipase Urine Protein Urine Ketones Urine Urobilinogen Discharge - Discharge Clinical Impression: Constipation, Diverticulosis, Long-term opioid use, Leukemia, Neutropenia Condition: Stable Disposition: HOME, SELF-CARE Instructions: Constipation ([facility]), Dehydration ([facility]) Additional Instructions: Constipation Constipation is a common problem. It is especially likely as you get older. Constipation is a common cause of abdominal pain, but sometimes causes no symptoms at all. Causes of constipation include certain medications, dehydration, diets, inactivity, and low-fiber intake. Rarely, it can be a symptom of underlying disease. The physician has evaluated you for this. Avoid constipation by eating a diet high in fiber, fruits, and vegetables. Drink plenty of liquids. Get regular exercise. If possible, avoid constipating medicines like narcotic pain medication. Some vitamin tablets can cause constipation. Stool softeners may be needed for difficult cases. An excellent stool softener is Konsyl which is available at [employer], and [employer]. Just add a teaspoon to a glass of pineapple or orange juice daily or twice a day if needed. Your oncologist stated that he should not be taking any laxatives or Fleet enemas fever or neutropenia. Advised to start Colace daily to help bring the water into her stool. For acute constipation, Fleet's Enemas and Dulcolax suppositories are helpful. Chronic, truck terminal manager use of laxatives or enemas is not a good idea. Your bowel may become dependant on them. You do not need to have a bowel movement every day. Many people do fine with a bowel movement every three or four days. You should call your doctor or return for re-evaluation if you pass blood in the stool, or if you develop fever or increasing abdominal pain. Follow-up with your oncologist tomorrow. Abdomen pelvis was negative for any acute findings, all other lab work was normal aside from having neutropenia. your labs show that you do have neutropenia which is consistent with what your labs are at the oncologist office. Avoid any sick contacts. follow up with pcp tomorow. Prescriptions: Docusate Sodium [Colace] 100 mg PO BID #60 capsule Referrals: CARLA LUA MD [Primary Care Provider] - Follow up tomorrow HUMZA DURAND MD [COMMUNITY BASED STAFF] - Follow up tomorrow CEDAR DALI MORENO PA-C [ALLIED HEALTH PROFESSIONAL] - Follow up in 3-5 days
[2018-05-15] MEDS ORDERED: MORPHINE SULFATE 10 MG/ML INJ IV ONE ×2 (09:57→15:28)
[2018-05-15 10:20] LABS: APPEARANCE,URINE CLEAR; BILIRUBIN,URINE NEGATIVE (NEGATIVE); GLUCOSE, URINE NEGATIVE (NEGATIVE); KETONES,URINE TRACE mg/dL (NEGATIVE); LEUKOCYTE ESTERASE,URINE NEGATIVE (NEGATIVE); NITRITE,URINE NEGATIVE (NEGATIVE); PROTEIN,URINE 30 mg/dL (NEGATIVE); URINE SPECIFIC GRAVITY 1.024
[2018-05-15 10:23] LABS: COLOR,URINE YELLOW
[2018-05-15 11:18] LABS: VENOUS BLOOD HCO3 23.3 mmol/L (20-32); VENOUS BLOOD PCO2 37.2 mmHg (35-63); VENOUS BLOOD PH 7.42 (7.30-7.42)
[2018-05-15 11:20] LABS: PROTHROMBIN TIME 14.8 SEC (11.4-15.4)
[2018-05-15 11:21] LABS: PARTIAL THROMBOPLASTIN TIME 33.7 SEC (23.5-35.8)
[2018-05-15 11:29] LABS: HEMATOCRIT 25.6 % (36.0-47.0); HEMOGLOBIN 8.6 g/dL (12.0-15.5); MEAN CORPUSCULAR HEMOGLOBIN 31.7 pg (27.0-33.4); MEAN CORPUSCULAR HGB CONC 33.7 g/dL (32.0-36.0); MEAN CORPUSCULAR VOLUME 94 fl (80-97); PLATELET COUNT 145 10^3/uL (150-450); RED BLOOD COUNT 2.72 10^6/uL (3.72-5.28); RED CELL DISTRIBUTION WIDTH 17.5 % (11.5-14.0)
[2018-05-15 11:36] LABS: ALANINE AMINOTRANSFERASE 23 U/L (9-52); ALBUMIN 3.7 g/dL (3.5-5.0); ALKALINE PHOSPHATASE 73 U/L (38-126); ANION GAP 10 (5-19); ASPARTATE AMINO TRANSFERASE 12 U/L (14-36); BILIRUBIN,DIRECT 0.2 mg/dL (0.0-0.4); BILIRUBIN,TOTAL 0.7 mg/dL (0.2-1.3); BLOOD UREA NITROGEN 16 mg/dL (7-20); CALCIUM 8.7 mg/dL (8.4-10.2); CARBON DIOXIDE 24 mmol/L (22-30); CHLORIDE 104 mmol/L (98-107); GLUCOSE 86 mg/dL (75-110); LIPASE 17.8 U/L (23-300); SODIUM 137.7 mmol/L (137-145); TOTAL PROTEIN 7.1 g/dL (6.3-8.2)
[2018-05-15 11:37] LABS: POTASSIUM 4.2 mmol/L (3.6-5.0)
[2018-05-15 12:16] LABS: ABSOLUTE LYMPHOCYTES# (MANUAL) 0.6 10^3/uL (0.5-4.7); ABSOLUTE NEUTROPHILS# (MANUAL) 0.4 10^3/uL (1.7-8.2); BASOPHILS % (MANUAL) 0 % (0-2); EOSINOPHILS % (MANUAL) 4 % (0-6); LYMPHOCYTES % (MANUAL) 56 % (13-45); MONOCYTES % (MANUAL) 0 % (3-13); SEGMENTED NEUTROPHILS % (MAN) 40 % (42-78); TOTAL CELLS COUNTED 50
[2018-05-15 12:17] LABS: ANISOCYTOSIS 2+; HYPOCHROMASIA 1+; OVALOCYTES 1+; PLATELET COMMENT DECREASED; POIKILOCYTOSIS 1+; POLYCHROMASIA SLIGHT
[2018-05-15] MEDS ORDERED: NORMAL SALINE 1000 ML 1,000 ML IV PRN (13:06)
[2018-05-15 13:07] LABS: A TYPE INFLUENZA AG NEGATIVE (NEGATIVE); B INFLUENZA AG NEGATIVE (NEGATIVE)
--- NOTE | 2018-05-15 13:20 | EKG REPORT ---
SEVERITY:- ABNORMAL ECG - ATRIAL-SENSED VENTRICULAR-PACED RHYTHM : Confirmed by: Angel Wu MD 15-May-2018 13:20:19
[2018-05-15 13:21] VITALS: BP 129/66
--- NOTE | 2018-05-15 13:56 | RADIOLOGY REPORT (SQ) ---
EXAM DESCRIPTION: CT ABD/PELVIS WITH IV ONLY COMPLETED DATE/TIME: 05/15/2018 1:25 pm REASON FOR STUDY: abd pain, no bm in days with nausea COMPARISON: 10/19/2015 TECHNIQUE: CT scan of the abdomen and pelvis performed using helical scanning technique with dynamic intravenous contrast injection. No oral contrast. Images reviewed with lung, soft tissue, and bone windows. Reconstructed coronal and sagittal MPR images reviewed. Delayed images for evaluation of the urinary system also acquired. All images stored on PACS. All CT scanners at this facility use dose modulation, iterative reconstruction, and/or weight based d osing when appropriate to reduce radiation dose to as low as reasonably achievable (ALARA). [facility]: Dose Right [facility]: CareDose [facility]: Dose Right [facility]: Teradose 4D [facility]: [employer] CONTRAST TYPE AND DOSE: contrast/concentration: Isovue 350.00 mg/ml; Total Contrast Delivered: 73.0 ml; Total Saline Delivered: 66.0 ml RENAL FUNCTION: GFR > 60. RADIATION DOSE: CT Rad equipment meets quality standard of care and radiation dose reduction techniq ues were employed. CTDIvol: 8.6 - 12.2 mGy. DLP: 1056 mGy-cm.. LIMITATIONS: None. FINDINGS: LOWER CHEST: Small pericardial effusion. LIVER: Normal size. No masses. No dilated ducts. SPLEEN: Normal size. No focal lesions. PANCREAS: No masses. No significant calcifications. No adjacent inflammation or peripancreatic fluid collections. Pancreatic duct not dilated. GALLBLADDER: Surgically absent. ADRENAL GLANDS: No significant masses or asymmetry. RIGHT KIDNEY AND URETER: No solid masses. No significant calcifications. No hydronephrosis or hyd roureter. LEFT KIDNEY AND URETER: No solid masses. No significant calcifications. No hydronephrosis or hydr oureter. AORTA AND VESSELS: No aneurysm. No dissection. Renal arteries, SMA, celiac without stenosis. Calcifi c atherosclerosis. RETROPERITONEUM: No retroperitoneal adenopathy, hemorrhage or masses. BOWEL AND PERITONEAL CAVITY: Large dense stool balls in the rectum. Large burden of stool in the col on. Sigmoid diverticulosis without evidence of acute inflammation to suggest diverticulitis. APPENDIX: Not clearly visualized. PELVIS: No mass. No free fluid. Normal bladder. Status post hysterectomy. ABDOMINAL WALL: No masses. No hernias. BONES: No significant or acute findings. OTHER: No other significant finding. IMPRESSION: Large burden of stool in the colon with large dense stool balls in the rectum. Sigmoid diverticulosis without evidence of acute diverticulitis. TECHNICAL DOCUMENTATION: JOB ID: [id number] Quality ID # [id number]: Final reports with documentation of one or more dose reduction techniques (e.g., Au tomated exposure control, adjustment of the mA and/or kV according to patient size, use of iterative reconstruction technique) 2010 [employer]- All Rights Reserved Reading location - IP/workstation name: [email or web address]
[2018-05-15 15:09] LABS: PATH REVIEW PATHOLOGIST REVIEWED
[2018-05-15] MEDS ORDERED: NORMAL SALINE 10 ML SDV (AFTER EACH USE) IV PRN (15:30)
[2018-05-15] MEDS ORDERED: NORMAL SALINE 10 ML SDV (SCHEDULED) IV SCH (22:00)
== END 2018-05-15 16:00 | disposition home or self-care (01) ==
LOC: ER 08:36
DX: K59.00 Constipation, unspecified (principal); K57.30 Diverticulosis of large intestine without perforation or abscess without bleeding; R10.84 Generalized abdominal pain; C95.90 Leukemia, unspecified not having achieved remission; D70.9 Neutropenia, unspecified; Z79.899 Other long term (current) drug therapy; Z79.891 Long term (current) use of opiate analgesic; Z88.8 Allergy status to other drugs, medicaments and biological substances
CPT/HCPCS: 93005; 36591; 96376; 99284; 96361; 51701; 96374; 36415; 87086; 83690; 85025; 85610; 85730; 80053; 81001; 84484; 82803; 83605; 87804; 74177; 93010; J2270; J7040; J1642

== ENCOUNTER 2019-04-07 09:47 | Outpatient (CLI) | payer MEDICARE, MEDICAID ==
[~2019-04-07 09:47] MED LIST changes: +AZACITIDINE IV PRN; -CEFAZOLIN 1 GM/D5W RTU 1 GM/50 ML RTUPB IV PRN; +DEXAMETHASONE SOD PHOSPHATE IV PRN; -DIAZEPAM 5 MG TABLET PO PRN; +NORMAL SALINE 250 ML @ KVO IV PRN; +NORMAL SALINE IV PRN; +ONDANSETRON HCL IV PRN; -OXYCODONE-ACETAMINOPHEN 5-325 MG TABLET PO PRN
[2019-04-07 10:00] VITALS: BP 142/95
== END 2019-04-07 11:13 | disposition home or self-care (01) ==
LOC: II 09:47 → 5TH 09:50 → II 11:13
PROVIDERS: ATTEND Internal Medicine Hematology & Oncology
DX: Z51.11 Encounter for antineoplastic chemotherapy (principal); C92.00 Acute myeloblastic leukemia, not having achieved remission; D46.21 Refractory anemia with excess of blasts 1
CPT/HCPCS: 96413; 96367; J2405; J7050; J1100; J9025; J1642

== ENCOUNTER 2019-12-09 05:50 | Inpatient (IN) | payer MEDICARE, MEDICAID ==
--- NOTE | 2019-12-09 06:12 | ER Document Report ---
ED General - General Chief Complaint: Nausea/Vomiting Stated Complaint: NAUSEA//VOMITING Time Seen by Provider: 12/09/19 06:11 Primary Care Provider: CARLA LUA MD [Primary Care Provider] - Follow up as needed TRAVEL OUTSIDE OF THE [place] IN LAST 30 DAYS: No - HPI Notes: 79-year-old female arrives with nausea and vomiting. Patient states she is feeling sick today. She had onset of her symptoms Saturday night. She states she has had multiple episodes of nausea and vomiting, additionally has some epigastric pain, described as a dull ache and is intermittent, does not radiate. She has no diarrhea, no dysuria. No fever. She is on chemotherapy for leukemia. She states that she last received chemo about a month ago. She is prone to nausea vomiting, she has not taken any antiemetics at home. She denies chest pain or shortness of breath. - Related Data Allergies/Adverse Reactions: denosumab [From Prolia] Allergy (Intermediate, Verified 01/09/18 17:10) "rash all over" RA med Allergy (Intermediate, Uncoded 01/09/18 17:10) "rash all over" Past Medical History - Social History Smoking Status: Unknown if Ever Smoked Family History: Reviewed & Not Pertinent - Past Medical History Cardiac Medical History: Denies: Hx Coronary Artery Disease, Hx Heart Attack, Hx Hypertension Pulmonary Medical History: Denies: Hx Asthma, Hx Bronchitis, Hx COPD, Hx Pneumonia Neurological Medical History: Denies: Hx Cerebrovascular Accident, Hx Seizures Renal/ Medical History: Denies: Hx Peritoneal Dialysis GI Medical History: Reports: Hx Ulcer - YRS AGO. Denies: Hx Hepatitis, Hx Hiatal Hernia Musculoskeletal Medical History: Reports Hx Arthritis - RA Psychiatric Medical History: Denies: Hx Depression Infectious Medical History: Denies: Hx Hepatitis Past Surgical History: Reports: Hx Hysterectomy, Hx Pacemaker - Medtronic. Denies: Hx Mastectomy, Hx Open Heart Surgery - Immunizations Immunizations up to date: No Hx Diphtheria, Pertussis, Tetanus Vaccination: No Review of Systems - Review of Systems Constitutional: denies: Chills, Fever EENT: No symptoms reported Cardiovascular: denies: Chest pain Respiratory: denies: Short of breath Gastrointestinal: Abdominal pain, Nausea, Vomiting. denies: Diarrhea Genitourinary: denies: Dysuria Female Genitourinary: No symptoms reported Musculoskeletal: No symptoms reported Skin: No symptoms reported Hematologic/Lymphatic: Other - Leukemia Neurological/Psychological: No symptoms reported Physical Exam - Vital signs Vitals: Resp Pulse Ox 19 100 12/09/19 05:56 12/09/19 05:56 - General General appearance: Alert In distress: None - HEENT Head: Normocephalic, Atraumatic Extraocular movements intact: Yes Pupils: PERRL Mucous membranes: Dry - Respiratory Respiratory status: No respiratory distress Chest status: Accessory muscle use - Cardiovascular Rhythm: Regular Heart sounds: Normal auscultation - Abdominal Inspection: Normal Distension: No distension Bowel sounds: Normal Tenderness: Tender - Epigastric. No: Guarding, Rebound - Extremities General upper extremity: Normal inspection General lower extremity: Normal inspection - Neurological Neuro grossly intact: Yes Cognition: Normal Orientation: AAOx4 - Psychological Associated symptoms: Normal affect - Skin Skin Temperature: Warm Course - Re-evaluation Re-evalutation: 79-year-old female here with nausea and vomiting x2 days, initially with epigastric pain. She is in no acute distress, does look a little dry, she does have mild tenderness to the epigastric/central abdominal area, abdomen is overall non-peritoneal. She does not voice any cardiopulmonary symptoms. Suspecting possible gastritis versus viral illness versus exacerbation of chronic nausea. Given her tenderness, will CT abdomen to eval for intra- abdominal process, such as obstruction. Will treat with Zofran, Pepcid and fluids. 12/09/19 10:19 CT abdomen has resulted. He does show dilation of the cecum, almost 6 cm. Will touch base with surgery. 12/09/19 10:29 I discussed with surgery, Dr. Oleary. We reviewed the CT images and report. At this time her findings are not consistent with cecal volvulus. Rather more so concerning for neutropenic enterocolitis. Have ordered Zosyn. Will contact Onc and hospitalist for admission. 12/09/19 10:34 Updated patient on results, she is feeling better. 12/09/19 10:[address] Russell on pt's need for admission. States that patient's blood counts are at her baseline. 12/09/19 11:[address] Blakely for admission - Vital Signs Vital signs: Temp Pulse Resp BP Pulse Ox 13 139/75 H 97 12/09/19 09:41 12/09/19 09:41 12/09/19 09:41 - Laboratory Result Diagrams: 12/09/19 08:00 12/09/19 08:00 Laboratory results interpreted by me: 12/09/19 12/09/19 08:00 08:00 WBC 2.3 L Hgb 11.9 L Hct 34.9 L RDW 17.6 H Abs Neuts (Manual) 1.5 L Sodium 133.6 L Chloride 96 L BUN 21 H Est GFR ( Amer) 54 L Est GFR (MDRD) Non-Af 45 L Glucose 122 H - Diagnostic Test Radiology reviewed: Image reviewed, Reports reviewed - EKG Interpretation by Me Additional EKG results interpreted by me: 12/09/19 08:27 EKG is interpreted by me. A sensed V paced rhythm, rate 82. Wide QRS as anticipated. Appears grossly similar to previous. Discharge - Discharge Clinical Impression: Enterocolitis Disposition: ADMITTED OBSERVATION Admitting Provider: Zora (Hospitalist) Unit Admitted: Medical Floor Referrals: CARLA LUA MD [Primary Care Provider] - Follow up as needed
[2019-12-09] MEDS ORDERED: RINGERS SOLUTION,LACTATED 1,000 ML IV ONE (07:10)
[2019-12-09] MEDS ORDERED: ONDANSETRON HCL INJ/PF 4 MG/2 ML SDV IV ONE (07:10)
[2019-12-09] MEDS ORDERED: FAMOTIDINE INJ/PF 20 MG/2 ML SDV IV ONE (07:10)
[2019-12-09 08:45] LABS: HEMATOCRIT 34.9 % (36.0-47.0); HEMOGLOBIN 11.9 g/dL (12.0-15.5); MEAN CORPUSCULAR HEMOGLOBIN 28.1 pg (27.0-33.4); MEAN CORPUSCULAR HGB CONC 34.1 g/dL (32.0-36.0); MEAN CORPUSCULAR VOLUME 83 fl (80-97); PLATELET COUNT 171 10^3/uL (150-450); RED BLOOD COUNT 4.23 10^6/uL (3.72-5.28); RED CELL DISTRIBUTION WIDTH 17.6 % (11.5-14.0); WHITE BLOOD COUNT 2.3 10^3/uL (4.0-10.5)
[2019-12-09 08:47] LABS: ALBUMIN 4.1 g/dL (3.5-5.0); ALKALINE PHOSPHATASE 102 U/L (38-126); ANION GAP 15 (5-19); ASPARTATE AMINO TRANSFERASE 35 U/L (14-36); BILIRUBIN,DIRECT 0.3 mg/dL (0.0-0.4); BILIRUBIN,TOTAL 0.7 mg/dL (0.2-1.3); BLOOD UREA NITROGEN 21 mg/dL (7-20); CALCIUM 9.3 mg/dL (8.4-10.2); CARBON DIOXIDE 23 mmol/L (22-30); CHLORIDE 96 mmol/L (98-107); GLUCOSE 122 mg/dL (75-110); POTASSIUM 3.9 mmol/L (3.6-5.0); TOTAL PROTEIN 8.2 g/dL (6.3-8.2)
[2019-12-09 09:15] LABS: ABSOLUTE LYMPHOCYTES# (MANUAL) 0.6 10^3/uL (0.5-4.7); ABSOLUTE MONOCYTES # (MANUAL) 0.2 10^3/uL (0.1-1.4); BASOPHILS % (MANUAL) 0 % (0-2); EOSINOPHILS % (MANUAL) 0 % (0-6); LYMPHOCYTES % (MANUAL) 24 % (13-45); MONOCYTES % (MANUAL) 9 % (3-13); SEGMENTED NEUTROPHILS % (MAN) 67 % (42-78); TOTAL CELLS COUNTED 100
[2019-12-09 09:16] LABS: ANISOCYTOSIS 1+; OVALOCYTES SLIGHT; PLATELET COMMENT ADEQUATE
--- NOTE | 2019-12-09 10:00 | RADIOLOGY REPORT (SQ) ---
EXAM DESCRIPTION: CT ABD/PELVIS WITH IV ONLY IMAGES COMPLETED DATE/TIME: 12/09/2019 9:34 am REASON FOR STUDY: epigastric/central abd pain COMPARISON: 05/15/2018 TECHNIQUE: CT scan of the abdomen and pelvis performed using helical scanning technique with dynamic intravenous contrast injection. No oral contrast. Images reviewed with lung, soft tissue, and bone windows. Reconstructed coronal and sagittal MPR images reviewed. Delayed images for evaluation of the urinary system also acquired. All images stored on PACS. All CT scanners at this facility use dose modulation, iterative reconstruction, and/or weight based d osing when appropriate to reduce radiation dose to as low as reasonably achievable (ALARA). [facility]: Dose Right [facility]: CareDose [facility]: Dose Right [facility]: Teradose 4D [facility]: [employer] CONTRAST TYPE AND DOSE: contrast/concentration: Isovue 350.00 mmol/ml; Total Contrast Delivered: 77. 9 ml; Total Saline Delivered: 67.0 ml RENAL FUNCTION: BUN 21, creatinine 1.16 RADIATION DOSE: CT Rad equipment meets quality standard of care and radiation dose reduction techniq ues were employed. CTDIvol: 10.3 - 14.4 mGy. DLP: 1240 mGy-cm.. LIMITATIONS: None. FINDINGS: LOWER CHEST: Mild bibasilar atelectasis. Cardiomegaly pericardial effusion noted on prior study has resolved. LIVER: Mild hepatomegaly. No focal lesions. There is mild prominence of the central hepatic ducts u nchanged from prior study. Common bile duct remains dilated measuring up to 14.6 mm. No obvious sto ne. Distal stricture cannot be excluded. There has been no significant change from 2019. SPLEEN: Normal size. No focal lesions. PANCREAS: No masses. No significant calcifications. No adjacent inflammation or peripancreatic fluid collections. Pancreatic duct not dilated. GALLBLADDER: Surgically absent. ADRENAL GLANDS: No significant masses or asymmetry. RIGHT KIDNEY AND URETER: No solid masses. No significant calcifications. No hydronephrosis or hyd roureter. LEFT KIDNEY AND URETER: No solid masses. Small left renal cyst. No significant calcifications. N o hydronephrosis or hydroureter. AORTA AND VESSELS: Atherosclerotic change. No aneurysmal dilatation. RETROPERITONEUM: No retroperitoneal adenopathy, hemorrhage or masses. BOWEL AND PERITONEAL CAVITY: Scattered diverticuli. No acute diverticulitis. Cecum is fluid-filled and mildly dilated measured at 5.7 cm. There are prominent lymph nodes in the right lower quadrant l argest measures 8.9 mm. These are most likely reactive. APPENDIX: Surgically absent. PELVIS: Bladder is slightly distended. ABDOMINAL WALL: No masses. No hernias. BONES: No significant or acute findings. OTHER: No other significant finding. IMPRESSION: 1. Stable dilatation of the common bile duct and central intrahepatic bile ducts. Prio r cholecystectomy. Distal stricture would be hard to exclude. No CT evidence of pancreatitis. 2. Slightly distended bladder. 3. Scattered diverticuli but no acute diverticulitis. Fluid filled cecum measuring up to 5.7 cm in diameter. Prominent right lower quadrant peritoneal lymph nodes most likely reactive. 4. Stable hepatomegaly. TECHNICAL DOCUMENTATION: JOB ID: [id number] Quality ID # [id number]: Final reports with documentation of one or more dose reduction techniques (e.g., Au tomated exposure control, adjustment of the mA and/or kV according to patient size, use of iterative reconstruction technique) 2010 [employer]- All Rights Reserved Reading location - IP/workstation name: [email or web address]
[2019-12-09] MEDS ORDERED: PIPERACILLIN/TAZOBACTAM 3.375 GM VIAL IV ONE (10:27)
--- NOTE | 2019-12-09 10:27 | EKG REPORT ---
SEVERITY:- ABNORMAL ECG - ATRIAL-SENSED VENTRICULAR-PACED COMPLEXES : Confirmed by: Isis Avendano MD 09-Dec-2019 10:27:05
[2019-12-09] MEDS ORDERED: MAG HYDROX/AL HYDROX/SIMETH SUSP 30 ML UDCUP PO PRN (12:59)
[2019-12-09] MEDS ORDERED: ACETAMINOPHEN 650 MG SUPP.RECT PR PRN (12:59)
[2019-12-09] MEDS ORDERED: ONDANSETRON HCL INJ/PF 4 MG/2 ML SDV IV PRN (12:59)
[2019-12-09] MEDS ORDERED: ALBUTEROL SULFATE 0.083% NEB 2.5 MG/3 ML AMPUL NEB PRN (12:59)
--- NOTE | 2019-12-09 13:16 | PDOC H&P ---
History of Present Illness Admission Date/PCP: 12/09/19 11:56 CARLA LUA Patient complains of: nausea, vomiting History of Present Illness: ANAT FARLEY is a 79 year old female, who is a pleasant but poor historian, with a past medical history significant for myeloid leukemia, last chemotherapy in October followed by Dr. Baldwin, likely atrial fibrilation (on sotalol, currently paced rhythm, anticoagulated on Eliquis), remote upper GI bleed, and GERD who presented to the emergency department today with a complaint of 3 to 4 days of nausea and vomiting with decreased tolerance of fluids. Evaluation in the emergency department revealed stable vital signs, Mild leukopenia (2.3), anemia (hemoglobin 11.9; improved from baseline), and absolute neutrophil 1.5. Chemistry essentially unremarkable other than mild dehydration (NA 133.6, BUN 21, creatinine 1.16, EGFR 54). Abdominal pelvic CT revealed scattered diverticuli without diverticulitis, fluid-filled cecum measuring 5.7 cm in diameter and a prominent right lower quadrant peritoneal lymph node there most likely reactive. Stable hepatomegaly. ED provider spoke with Dr. Russell; recommends admission for hydration. Patient is referred to the hospitalist services for further evaluation and management of the above. Past Medical History Cardiac Medical History: Reports: Hypertension Denies: Coronary Artery Disease, Myocardial Infarction Pulmonary Medical History: Reports: None EENT Medical History: Reports: None Neurological Medical History: Denies: Ischemic CVA, Seizures Endocrine Medical History: Reports: None Renal/ Medical History: Reports: None Malignancy Medical History: Reports: Leukemia GI Medical History: Reports: Gastroesophageal Reflux Disease, Peptic Ulcer Disease Denies: Hepatitis, Hiatal Hernia Musculoskeltal Medical History: Reports: Arthritis - RA Skin Medical History: Reports: None Psychiatric Medical History: Reports: None Hematology: Reports: Anemia Denies: Sickle Cell Disease Past Surgical History Past Surgical History: Reports: Hysterectomy, Pacemaker - [employer]tr[employer] Denies: Amputation, Mastectomy Social History Information Source: Patient Lives with: Alone Smoking Status: Unknown if Ever Smoked Electronic Cigarette use?: No Frequency of Alcohol Use: None Hx Recreational Drug Use: No Drugs: None Hx Prescription Drug Abuse: No - Advance Directive Resuscitation Status: Full Code Family History Family History: Reviewed & Not Pertinent Parental Family History Reviewed: Yes Children Family History Reviewed: Yes Sibling(s) Family History Reviewed.: Yes Medication/Allergy Home Medications: Apixaban [Eliquis 5 mg Tablet] 5 mg PO BID 12/09/19 Pantoprazole Sodium [Protonix [address] Tablet] 40 mg PO DAILY 12/09/19 Sotalol HCl [Betapace 80 mg Tablet] 40 mg PO BID 12/09/19 Allergies/Adverse Reactions: denosumab [From Prolia] Allergy (Intermediate, Verified 01/09/18 17:10) "rash all over" RA med Allergy (Intermediate, Uncoded 01/09/18 17:10) "rash all over" Review of Systems Constitutional: PRESENT: fatigue. ABSENT: chills, fever(s), headache(s), weight gain, weight loss Eyes: ABSENT: visual disturbances Ears: ABSENT: hearing changes Cardiovascular: ABSENT: chest pain, dyspnea on exertion, edema, orthropnea, palpitations Respiratory: ABSENT: cough, hemoptysis Gastrointestinal: PRESENT: abdominal pain - epigastric; cramping, nausea, vomiting. ABSENT: constipation, diarrhea, hematemesis, hematochezia Genitourinary: ABSENT: dysuria, hematuria Musculoskeletal: ABSENT: joint swelling Integumentary: ABSENT: rash, wounds Neurological: ABSENT: abnormal gait, abnormal speech, confusion, dizziness, focal weakness, syncope Psychiatric: ABSENT: anxiety, depression, homidical ideation, suicidal ideation Endocrine: ABSENT: cold intolerance, heat intolerance, polydipsia, polyuria Hematologic/Lymphatic: ABSENT: easy bleeding, easy bruising Physical Exam Vital Signs: Temp Pulse Resp BP Pulse Ox 98.2 F 10 L 128/57 H 98 12/09/19 12:00 12/09/19 12:00 12/09/19 12:00 12/09/19 12:00 Intake & Output 12/08/19 12/09/19 12/10/19 06:59 06:59 06:59 Intake Total 1000 Balance 1000 Weight 68.039 kg General appearance: PRESENT: no acute distress, cooperative, well-developed, well-nourished Head exam: PRESENT: atraumatic, normocephalic Eye exam: PRESENT: conjunctiva pink, EOMI, PERRLA. ABSENT: scleral icterus Ear exam: PRESENT: normal external ear exam Mouth exam: PRESENT: dry mucosa, tongue midline Respiratory exam: PRESENT: clear to auscultation heri, symmetrical, unlabored. ABSENT: rales, rhonchi, wheezes Cardiovascular exam: PRESENT: RRR. ABSENT: diastolic murmur, rubs, systolic murmur Pulses: PRESENT: normal dorsalis pedis pul Vascular exam: PRESENT: normal capillary refill GI/Abdominal exam: PRESENT: hyperactive bowel sounds, soft, tenderness - epigastric. ABSENT: distended, guarding, mass, organolmegaly, rebound Rectal exam: PRESENT: deferred Extremities exam: PRESENT: full ROM. ABSENT: calf tenderness, clubbing, pedal edema Neurological exam: PRESENT: alert, awake, oriented to person, oriented to place, oriented to time, oriented to situation, CN II-XII grossly intact. ABSENT: motor sensory deficit Psychiatric exam: PRESENT: appropriate affect, normal mood. ABSENT: homicidal ideation, suicidal ideation Skin exam: PRESENT: dry, intact, warm. ABSENT: cyanosis, rash Results Laboratory Results: 12/09/19 08:00 12/09/19 08:00 12/09/19 12/09/19 08:00 08:00 WBC 2.3 L RBC 4.23 Hgb 11.9 L Hct 34.9 L MCV 83 MCH 28.1 MCHC 34.1 RDW 17.6 H Plt Count 171 Seg Neutrophils % Not Reportable Sodium 133.6 L Potassium 3.9 Chloride 96 L Carbon Dioxide 23 Anion Gap 15 BUN 21 H Creatinine 1.16 Est GFR ( Amer) 54 L Glucose 122 H Calcium 9.3 Total Bilirubin 0.7 AST 35 Alkaline Phosphatase 102 Total Protein 8.2 Albumin 4.1 Lipase 28.8 Impressions: Abdomen/Pelvis CT 12/09/19 07:09 IMPRESSION: 1. Stable dilatation of the common bile duct and central intrahepatic bile ducts. Prior cholecystectomy. Distal stricture would be hard to exclude. No CT evidence of pancreatitis. 2. Slightly distended bladder. 3. Scattered diverticuli but no acute diverticulitis. Fluid filled cecum measuring up to 5.7 cm in diameter. Prominent right lower quadrant peritoneal lymph nodes most likely reactive. 4. Stable hepatomegaly. Assessment and Plan - Diagnosis (1) Enterocolitis Is this a current diagnosis for this admission?: Yes Plan: Patient is admitted to the medical floor. She received 1 dose of Zosyn by the ED provider. She is currently afebrile with mild leukopenia, and nontoxic appearance. We will hold on any further antibiotics at this time as this could be chemotherapy related and or viral in nature. We will obtain stool study. Continue gentle IV fluids. Antiemetics and analgesics as needed. Follow-up chemistries. (2) Nausea & vomiting Is this a current diagnosis for this admission?: Yes Plan: Secondary 1. Management as above. (3) Myeloid leukemia Is this a current diagnosis for this admission?: Yes Plan: Per patient, last chemotherapy mid October. She is noted to have leukopenia, anemia (improved from baseline) and absolute neutrophil count of 1.5. We will consult her established oncologist, Dr. Russell. (4) Paced cardiac rhythm Is this a current diagnosis for this admission?: Yes Plan: Continue home dose sotalol and Eliquis. - Time Time Spent with patient: 35 or more minutes Medications reviewed and adjusted accordingly: Yes Anticipated Discharge Disposition: Home, Self Care Anticipated Discharge Timeframe: within 48 hours
[2019-12-09 14:02] LABS: APPEARANCE,URINE CLEAR; BILIRUBIN,URINE NEGATIVE (NEGATIVE); COLOR,URINE YELLOW; GLUCOSE, URINE NEGATIVE (NEGATIVE); KETONES,URINE NEGATIVE (NEGATIVE); LEUKOCYTE ESTERASE,URINE NEGATIVE (NEGATIVE); NITRITE,URINE NEGATIVE (NEGATIVE); PROTEIN,URINE NEGATIVE (NEGATIVE); URINE SPECIFIC GRAVITY 1.029; UROBILINOGEN,URINE NEGATIVE mg/dL (<2.0)
[2019-12-09] MEDS ORDERED: MORPHINE SULFATE 10 MG/ML INJ IV PRN (14:13)
[2019-12-09] MEDS: SOTALOL HCL 80 MG TABLET PO SCH ×2 (14:28→21:51)
[2019-12-09] MEDS: PROMETHAZINE HCL INJ 25 MG/1 ML VIAL IV PRN (15:46)
[2019-12-09] MEDS: NORMAL SALINE 1000 ML 1,000 ML IV PRN (15:50)
[2019-12-09] MEDS: APIXABAN 5 MG TABLET PO SCH (17:07)
[2019-12-09] MEDS: NICOTINE 14 MG/24 HR PATCH.TD24 TD SCH (21:52)
[2019-12-10] MEDS: NORMAL SALINE 1000 ML 1,000 ML IV PRN ×3 (00:02→17:04)
[2019-12-10] MEDS ORDERED: PANTOPRAZOLE SODIUM 40 MG TABLET.DR PO SCH (06:00)
[2019-12-10] MEDS: PROMETHAZINE HCL INJ 25 MG/1 ML VIAL IV PRN (07:23)
[2019-12-10 07:57] LABS: MEAN CORPUSCULAR HEMOGLOBIN 28.3 pg (27.0-33.4); MEAN CORPUSCULAR HGB CONC 34.4 g/dL (32.0-36.0); MEAN CORPUSCULAR VOLUME 82 fl (80-97); PLATELET COUNT 116 10^3/uL (150-450); RED BLOOD COUNT 3.28 10^6/uL (3.72-5.28); WHITE BLOOD COUNT 2.9 10^3/uL (4.0-10.5)
[2019-12-10 08:16] LABS: ANION GAP 9 (5-19); BLOOD UREA NITROGEN 14 mg/dL (7-20); CARBON DIOXIDE 21 mmol/L (22-30); CHLORIDE 103 mmol/L (98-107); GLUCOSE 88 mg/dL (75-110); POTASSIUM 3.5 mmol/L (3.6-5.0)
[2019-12-10 08:24] LABS: HEMOGLOBIN 9.3 g/dL (12.0-15.5)
[2019-12-10 08:29] LABS: ABSOLUTE LYMPHOCYTES# (MANUAL) 0.8 10^3/uL (0.5-4.7); ABSOLUTE MONOCYTES # (MANUAL) 0.1 10^3/uL (0.1-1.4); BASOPHILS % (MANUAL) 0 % (0-2); EOSINOPHILS % (MANUAL) 1 % (0-6); LYMPHOCYTES % (MANUAL) 21 % (13-45); MONOCYTES % (MANUAL) 4 % (3-13); SEGMENTED NEUTROPHILS % (MAN) 47 % (42-78); TOTAL CELLS COUNTED 100
[2019-12-10 08:31] LABS: ANISOCYTOSIS 1+; OVALOCYTES SLIGHT; PLATELET LARGE PRESENT; POIKILOCYTOSIS SLIGHT; POLYCHROMASIA SLIGHT; SCHISTOCYTES SLIGHT; TEAR DROP CELLS SLIGHT; TOXIC VACUOLATION PRESENT
[2019-12-10 08:36] LABS: PLATELET COMMENT DECREASED
[2019-12-10] MEDS ORDERED: POTASSIUM CHLORIDE 20 MEQ PACKET PO ONE (09:00)
[2019-12-10] MEDS: APIXABAN 5 MG TABLET PO SCH ×2 (09:21→17:01)
[2019-12-10] MEDS: SOTALOL HCL 80 MG TABLET PO SCH ×2 (09:21→21:21)
[2019-12-10] MEDS: NICOTINE 14 MG/24 HR PATCH.TD24 TD SCH (09:21)
--- NOTE | 2019-12-10 09:52 | PDOC CONSULTATION ---
Consultation Consult Date: 12/10/19 Provider Consulted: ADRIEL MORELAND Consult reason:: Hematology/Oncology consultation was requested for patient with gastroenteritis on active treatment for Acute Leukemia. History of Present Illness Admission Date/PCP: 12/09/19 11:56 CARLA LUA History of Present Illness: ANAT FARLEY is a 79 year old female who was diagnosed with AML in Jan 2018. She has been receiving palliative chemo with Azacitadide since that time. However, over the past 3 months, her initial symptoms of leukemia, with abdominal discomfort and nausea have returned and she has not been able to undergo further chemo. She was admitted with further nausea and CT scan shows dilated fluid filled cecum. Today, she states that her nausea continues. Medications only work temporarily. Past Medical History Cardiac Medical History: Reports: Hypertension Denies: Coronary Artery Disease, Myocardial Infarction Pulmonary Medical History: Reports: None Denies: Asthma, Bronchitis, Chronic Obstructive Pulmonary Disease (COPD), Pneumonia EENT Medical History: Reports: None Neurological Medical History: Denies: Ischemic CVA, Seizures Endocrine Medical History: Reports: None Renal/ Medical History: Reports: None Malignancy Medical History: Reports: Leukemia GI Medical History: Reports: Gastroesophageal Reflux Disease, Peptic Ulcer Disease Denies: Hepatitis, Hiatal Hernia Musculoskeltal Medical History: Reports: Arthritis - RA Skin Medical History: Reports: None Psychiatric Medical History: Reports: None Denies: Bipolar Disorder, Depression Hematology: Reports: Anemia Denies: Sickle Cell Disease Past Surgical History Past Surgical History: Reports: Hysterectomy, Pacemaker - [employer] Denies: Amputation, Mastectomy Social History Lives with: Alone Smoking Status: Never Smoker Electronic Cigarette use?: No Frequency of Alcohol Use: None Hx Recreational Drug Use: No Drugs: None Hx Prescription Drug Abuse: No - Advance Directive Resuscitation Status: Full Code Family History Parental Family History Reviewed: Yes - Father with CHF Children Family History Reviewed: No Sibling(s) Family History Reviewed.: Yes - Sister with Lupus. Medication/Allergy Home Medications: Apixaban [Eliquis 5 mg Tablet] 5 mg PO BID 12/09/19 Pantoprazole Sodium [Protonix [address] Tablet] 40 mg PO DAILY 12/09/19 Sotalol HCl [Betapace 80 mg Tablet] 40 mg PO BID 12/09/19 Allergies/Adverse Reactions: denosumab [From ProlSoshowise] Allergy (Intermediate, Verified 01/09/18 17:10) "rash all over" RA med Allergy (Intermediate, Uncoded 01/09/18 17:10) "rash all over" Review of Systems Constitutional: ABSENT: fever(s), headache(s) Eyes: ABSENT: visual disturbances Ears: ABSENT: hearing changes Nose, Mouth, and Throat: ABSENT: sore throat Cardiovascular: ABSENT: chest pain Respiratory: ABSENT: dyspnea Gastrointestinal: PRESENT: abdominal pain, nausea Genitourinary: ABSENT: dysuria Integumentary: ABSENT: rash Neurological: PRESENT: weakness Hematologic/Lymphatic: ABSENT: easy bleeding Physical Exam Vital Signs: Temp Pulse Resp BP Pulse Ox 100.3 F 72 17 118/46 L 93 12/10/19 00:01 12/10/19 00:01 12/10/19 00:01 12/10/19 00:01 12/10/19 00:01 Intake & Output 12/09/19 12/10/19 12/11/19 06:59 06:59 06:59 Intake Total 2000 923 Output Total 248 Balance 1752 923 Weight 68.039 kg 68 kg General appearance: PRESENT: well-developed, well-nourished Head exam: PRESENT: normocephalic Eye exam: PRESENT: EOMI Respiratory exam: PRESENT: clear to auscultation heri, unlabored Cardiovascular exam: PRESENT: RRR GI/Abdominal exam: PRESENT: soft, tenderness Extremities exam: ABSENT: pedal edema Neurological exam: PRESENT: alert, awake, oriented to person, oriented to place, oriented to time, oriented to situation Psychiatric exam: PRESENT: appropriate affect Skin exam: PRESENT: normal color Results Laboratory Results: 12/09/19 12/09/19 12/09/19 08:00 08:00 13:42 WBC 2.3 L RBC 4.23 Hgb 11.9 L Hct 34.9 L MCV 83 MCH 28.1 MCHC 34.1 RDW 17.6 H Plt Count 171 Seg Neutrophils % Not Reportable Sodium 133.6 L Potassium 3.9 Chloride 96 L Carbon Dioxide 23 Anion Gap 15 BUN 21 H Creatinine 1.16 Est GFR ( Amer) 54 L Glucose 122 H Calcium 9.3 Total Bilirubin 0.7 AST 35 Alkaline Phosphatase 102 Total Protein 8.2 Albumin 4.1 Lipase 28.8 Urine Color YELLOW Urine Appearance CLEAR Urine pH 7.0 Ur Specific [place] 1.029 Urine Protein NEGATIVE Urine Glucose (UA) NEGATIVE Urine Ketones NEGATIVE Urine Blood NEGATIVE Urine Nitrite NEGATIVE Ur Leukocyte Esterase NEGATIVE Urine WBC (Auto) 2 Urine RBC (Auto) 1 Impressions: Abdomen/Pelvis CT 12/09/19 07:09 IMPRESSION: 1. Stable dilatation of the common bile duct and central intrahepatic bile ducts. Prior cholecystectomy. Distal stricture would be hard to exclude. No CT evidence of pancreatitis. 2. Slightly distended bladder. 3. Scattered diverticuli but no acute diverticulitis. Fluid filled cecum measuring up to 5.7 cm in diameter. Prominent right lower quadrant peritoneal lymph nodes most likely reactive. 4. Stable hepatomegaly. Assessment & Plan - Diagnosis (1) Enterocolitis Is this a current diagnosis for this admission?: Yes Plan: I strongly suspect that this is due to her AML, and is not infectious. However, I agree with a trial of antibiotics to see if she responds. She was given as dose of Zosyn, but no ABX were continued on admission. Consider Flagyl, or other ABX. I will defer to Hospitalists. (2) Nausea & vomiting Is this a current diagnosis for this admission?: Yes Plan: Continue phenergan and zofran PRN. I will add a regular dose of reglan to see if this will help her feel better overall. Continue to monitor. (3) Myeloid leukemia Is this a current diagnosis for this admission?: Yes Plan: All treatment on hold. She understands that all of her treatment has been palliative and does not seem to be working anymore. We briefly discussed code status, but I believe a family meeting would be beneficial, as she often will answer my questions with "whatever you think is best."
[2019-12-10] MEDS: METOCLOPRAMIDE HCL 10 MG TABLET PO SCH ×2 (10:07→15:00)
[2019-12-10 10:57] LABS: IMMATURE MONONUCLEAR% (MANUAL) 19 % (0)
[2019-12-10] MEDS ORDERED: ONDANSETRON HCL INJ/PF 4 MG/2 ML SDV IV PRN (14:00)
[2019-12-10] MEDS ORDERED: MAG HYDROX/AL HYDROX/SIMETH SUSP 30 ML UDCUP PO ONE (14:16)
[2019-12-10] MEDS ORDERED: LIDOCAINE 2% VISCOUS SOLN 15 ML UDCUP PO ONE (14:16)
[2019-12-10] MEDS: PIPERACILLIN SODIUM/TAZOBACTAM 3.375 GM in NORMAL SALINE 100 ML IV SCH (17:01)
--- NOTE | 2019-12-10 18:56 | PDOC PROGRESS REPORT ---
Subjective Progress Note for:: 12/10/19 Subjective:: Patient was seen on afternoon rounds. She is found resting in bed, maintaining oxygen saturations, on room air. She is in mild distress related to abdominal discomfort. She is noted to be rocking back and forth rubbing her abdomen. When asked where she hurts specifically, she motions with one finger drawing a line down her throat, chest, into epigastric/periumbilical area. She states the pain is worse following p.o. intake. She admits to continued nausea though without emesis. No further episodes of diarrhea. She has had a fever; T-max 101 in the last 24 hours. Otherwise, she denies chills, chest pain, palpitations, dyspnea, orthopnea, cough. She has no other questions or concerns at this time. No concerns per nursing. Reason For Visit: ENTEROCOLITIS Physical Exam Vital Signs: Temp Pulse Resp BP Pulse Ox 98.6 F 63 16 121/61 95 12/10/19 15:44 12/10/19 15:44 12/10/19 15:44 12/10/19 15:44 12/10/19 15:44 Intake & Output 12/09/19 12/10/19 12/11/19 06:59 06:59 06:59 Intake Total 1999 1857 Output Total 248 Balance 1752 1857 Weight 68.039 kg 68 kg General appearance: PRESENT: cooperative, hard of hearing, mild distress - r/t abd discomfort, well-developed, well-nourished Head exam: PRESENT: atraumatic, normocephalic Eye exam: PRESENT: conjunctiva pink, EOMI, PERRLA. ABSENT: scleral icterus Mouth exam: PRESENT: moist, tongue midline Respiratory exam: PRESENT: clear to auscultation heri, symmetrical, unlabored. ABSENT: rales, rhonchi, wheezes Cardiovascular exam: PRESENT: RRR. ABSENT: diastolic murmur, rubs, systolic murmur Vascular exam: PRESENT: normal capillary refill GI/Abdominal exam: PRESENT: normal bowel sounds, soft, tenderness - indicates esophageal -> epigastric pain by motioning that she has pain from her through to mid abdomen. ABSENT: distended, guarding, mass, organolmegaly, rebound Extremities exam: PRESENT: full ROM - moves all extremities spontaneously. ABSENT: calf tenderness, clubbing, pedal edema Neurological exam: PRESENT: alert, awake, oriented to person, oriented to place, oriented to time, oriented to situation, CN II-XII grossly intact. ABSENT: motor sensory deficit Psychiatric exam: PRESENT: appropriate affect, normal mood. ABSENT: homicidal ideation, suicidal ideation Skin exam: PRESENT: dry, intact, warm. ABSENT: cyanosis, rash Results Laboratory Results: 12/10/19 07:10 12/10/19 07:10 12/10/19 12/10/19 07:10 07:10 WBC 2.9 L RBC 3.28 L Hgb 9.3 L D Hct 27.0 L MCV 82 MCH 28.3 MCHC 34.4 RDW 17.0 H Plt Count 116 L Seg Neutrophils % Not Reportable Sodium 132.5 L Potassium 3.5 L Chloride 103 Carbon Dioxide 21 L Anion Gap 9 BUN 14 Creatinine 0.97 Est GFR ( Amer) > 60 Glucose 88 Calcium 8.0 L Impressions: Abdomen/Pelvis CT 12/09/19 07:09 IMPRESSION: 1. Stable dilatation of the common bile duct and central intrahepatic bile ducts. Prior cholecystectomy. Distal stricture would be hard to exclude. No CT evidence of pancreatitis. 2. Slightly distended bladder. 3. Scattered diverticuli but no acute diverticulitis. Fluid filled cecum measuring up to 5.7 cm in diameter. Prominent right lower quadrant peritoneal lymph nodes most likely reactive. 4. Stable hepatomegaly. Assessment and Plan - Diagnosis (1) Enterocolitis Is this a current diagnosis for this admission?: Yes Plan: Blood cultures are negative at 24 hours. Stool cultures pending; nursing indicates that she has had no further diarrheal bowel movements. Patient developed a fever of 101.0 today. Increased abdominal discomfort. Patient is admitted to the medical floor. Continue gentle IV fluids. Antiemetics and analgesics as needed. We will start IV Zosyn. Nursing reports good response to Maalox and viscous lidocaine. Will provide scheduled GI cocktails. Protonix twice daily. Will need to discuss possible EGD to evaluate for esophagitis r/t candidiasis with patient and surgery (will COVID test for procedural r/o) Follow-up chemistries. (2) Nausea & vomiting Is this a current diagnosis for this admission?: Yes Plan: Secondary 1. Management as above. (3) Myeloid leukemia Is this a current diagnosis for this admission?: Yes Plan: Per patient, last chemotherapy mid October. She is noted to have leukopenia, anemia (improved from baseline) and absolute neutrophil count of 1.5. Primary management per established oncologist, Dr. Russell. (4) Paced cardiac rhythm Is this a current diagnosis for this admission?: Yes Plan: Continue home dose sotalol and Eliquis. - Time Time Spent with patient: 25-34 minutes Medications reviewed and adjusted accordingly: Yes Anticipated Discharge Disposition: Home, Self Care Anticipated Discharge Timeframe: >72 hrs - Inpatient Certification Based on my medical assessment, after consideration of the patient's comorbidities, presenting symptoms, or acuity I expect that the services needed warrant INPATIENT care.: Yes I certify that my determination is in accordance with my understanding of Medicare's requirements for reasonable and necessary INPATIENT services [42 CFR 412.3e].: Yes Medical Necessity: Need For IV Fluids, Need for IV Antibiotics, Risk of Diagnosis Which Will Require Inpatient Eval/Care/Monitoring
[2019-12-11] MEDS: MAG HYDROX/AL HYDROX/SIMETH SUSP 30 ML UDCUP PO SCH ×4 (00:07→17:20)
[2019-12-11] MEDS: PIPERACILLIN SODIUM/TAZOBACTAM 3.375 GM in NORMAL SALINE 100 ML IV SCH ×5 (00:07→22:59)
[2019-12-11] MEDS: LIDOCAINE 2% VISCOUS SOLN 15 ML UDCUP PO SCH ×4 (00:07→17:21)
[2019-12-11] MEDS: METOCLOPRAMIDE HCL ORAL SOLN 10 MG/10 ML UDCUP PO SCH ×4 (00:07→17:20)
[2019-12-11 05:28] LABS: HEMATOCRIT 29.3 % (36.0-47.0); MEAN CORPUSCULAR HEMOGLOBIN 27.9 pg (27.0-33.4); MEAN CORPUSCULAR HGB CONC 33.9 g/dL (32.0-36.0); MEAN CORPUSCULAR VOLUME 82 fl (80-97); PLATELET COUNT 127 10^3/uL (150-450); RED BLOOD COUNT 3.57 10^6/uL (3.72-5.28); RED CELL DISTRIBUTION WIDTH 16.8 % (11.5-14.0); WHITE BLOOD COUNT 3.2 10^3/uL (4.0-10.5)
[2019-12-11 05:47] LABS: ANION GAP 7 (5-19); BLOOD UREA NITROGEN 10 mg/dL (7-20); CALCIUM 8.3 mg/dL (8.4-10.2); CARBON DIOXIDE 22 mmol/L (22-30); CHLORIDE 108 mmol/L (98-107); GLUCOSE 89 mg/dL (75-110); POTASSIUM 3.5 mmol/L (3.6-5.0)
[2019-12-11] MEDS: PANTOPRAZOLE SODIUM 40 MG TABLET.DR PO SCH ×2 (06:01→17:20)
--- NOTE | 2019-12-11 08:44 | PDOC PROGRESS REPORT ---
Subjective Progress Note for:: 12/11/19 Subjective:: Patient states that she is feeling much better today. Her abdominal pain has now resolved. However, she is still not able to eat anything. She is tolerating some liquids. No BM for several days, which she believes is because she is not eating enough. No other complaints. Reason For Visit: ENTEROCOLITIS Physical Exam Vital Signs: Temp Pulse Resp BP Pulse Ox 98.2 F 60 15 129/66 H 97 12/11/19 08:04 12/11/19 08:04 12/11/19 08:04 12/11/19 08:04 12/11/19 08:04 Intake & Output 12/10/19 12/11/19 12/12/19 06:59 06:59 06:59 Intake Total 1999 3056 Output Total 248 Balance 1752 3057 Weight 68 kg 70.9 kg General appearance: PRESENT: well-developed, well-nourished Head exam: PRESENT: normocephalic Eye exam: PRESENT: EOMI Respiratory exam: PRESENT: unlabored Neurological exam: PRESENT: alert, awake Psychiatric exam: PRESENT: appropriate affect Skin exam: PRESENT: normal color Results Laboratory Results: 12/11/19 05:02 12/11/19 05:02 12/10/19 12/11/19 12/11/19 07:10 05:02 05:02 WBC 2.9 L 3.2 L RBC 3.28 L 3.57 L Hgb 9.3 L D 10.0 L Hct 27.0 L 29.3 L MCV 82 82 MCH 28.3 27.9 MCHC 34.4 33.9 RDW 17.0 H 16.8 H Plt Count 116 L 127 L Sodium 137.2 Potassium 3.5 L Chloride 108 H Carbon Dioxide 22 Anion Gap 7 BUN 10 Creatinine 0.94 Est GFR ( Amer) > 60 Glucose 89 Calcium 8.3 L Impressions: Abdomen/Pelvis CT 12/09/19 07:09 IMPRESSION: 1. Stable dilatation of the common bile duct and central intrahepatic bile ducts. Prior cholecystectomy. Distal stricture would be hard to exclude. No CT evidence of pancreatitis. 2. Slightly distended bladder. 3. Scattered diverticuli but no acute diverticulitis. Fluid filled cecum measuring up to 5.7 cm in diameter. Prominent right lower quadrant peritoneal lymph nodes most likely reactive. 4. Stable hepatomegaly. Assessment & Plan - Diagnosis (1) Enterocolitis Is this a current diagnosis for this admission?: Yes Plan: Still difficult to say if this is infectious or related to leukemic infiltrate. I would like to try to treat with antibiotics for at least a few more days to see if there will be further resolution. Advance diet as tolerated. (2) Nausea & vomiting Is this a current diagnosis for this admission?: Yes Plan: Much improved. (3) Myeloid leukemia Is this a current diagnosis for this admission?: Yes Plan: She needs to be eating and walking over the next few days and if no improvement, then will need to consider Hospice. - Time Time Spent with patient: 15-24 minutes
[2019-12-11] MEDS: NICOTINE 14 MG/24 HR PATCH.TD24 TD SCH (09:20)
[2019-12-11] MEDS: APIXABAN 5 MG TABLET PO SCH ×2 (09:20→17:20)
[2019-12-11] MEDS: SOTALOL HCL 80 MG TABLET PO SCH ×2 (09:20→22:59)
[2019-12-11] MEDS: NORMAL SALINE 1000 ML 1,000 ML IV PRN (09:42)
[2019-12-11] MEDS ORDERED: METOCLOPRAMIDE HCL ORAL SOLN 10 MG/10 ML UDCUP PO PRN (17:35)
[2019-12-11] MEDS ORDERED: LIDOCAINE 2% VISCOUS SOLN 15 ML UDCUP PO PRN (17:35)
[2019-12-11] MEDS ORDERED: MAG HYDROX/AL HYDROX/SIMETH SUSP 30 ML UDCUP PO PRN (17:35)
[2019-12-11] MEDS ORDERED: DICYCLOMINE HCL 20 MG TABLET PO PRN (17:41)
--- NOTE | 2019-12-11 17:54 | PDOC PROGRESS REPORT ---
Subjective Progress Note for:: 12/11/19 Subjective:: Patient was seen on morning rounds. She is found resting in bed, maintaining oxygen saturations, on room air. She appears to be comfortable, and, in fact tells me that she is feeling much better. She states that she hasn't eaten breakfast; however, she is noted to have oatmeal in her mouth when I checked for thrush. She has had a fever; T-max 100/24 hrs, 101/48 hrs Otherwise, she denies chills, chest pain, palpitations, dyspnea, orthopnea, cough. She has no other questions or concerns at this time. No concerns per nursing. Reason For Visit: ENTEROCOLITIS Physical Exam Vital Signs: Temp Pulse Resp BP Pulse Ox 98.6 F 110 H 16 134/73 H 97 12/11/19 15:09 12/11/19 15:09 12/11/19 15:09 12/11/19 15:09 12/11/19 15:09 Intake & Output 12/10/19 12/11/19 12/12/19 06:59 06:59 06:59 Intake Total 1999 3057 100 Output Total 248 Balance 1752 3057 100 Weight 68 kg 70.9 kg General appearance: PRESENT: no acute distress, cooperative, obese, well- developed, well-nourished Head exam: PRESENT: atraumatic, normocephalic Eye exam: PRESENT: conjunctiva pink, EOMI, PERRLA. ABSENT: scleral icterus Mouth exam: PRESENT: moist, tongue midline Teeth exam: PRESENT: poor dentation Respiratory exam: PRESENT: clear to auscultation heri, symmetrical, unlabored. ABSENT: rales, rhonchi, wheezes Cardiovascular exam: PRESENT: RRR, +S1, +S2. ABSENT: diastolic murmur, rubs, systolic murmur Pulses: PRESENT: normal dorsalis pedis pul Vascular exam: PRESENT: normal capillary refill GI/Abdominal exam: PRESENT: normal bowel sounds, soft, tenderness - intermittent epigastric. ABSENT: distended, guarding, mass, organolmegaly, rebound Rectal exam: PRESENT: deferred Extremities exam: PRESENT: full ROM. ABSENT: calf tenderness, clubbing, pedal edema Musculoskeletal exam: PRESENT: ambulatory Neurological exam: PRESENT: alert, awake, oriented to person, oriented to place, oriented to time, oriented to situation, CN II-XII grossly intact. ABSENT: motor sensory deficit Psychiatric exam: PRESENT: anxious, appropriate affect, normal mood. ABSENT: homicidal ideation, suicidal ideation Skin exam: PRESENT: dry, intact, warm. ABSENT: cyanosis, rash Results Laboratory Results: 12/11/19 05:02 12/11/19 05:02 12/11/19 12/11/19 12/11/19 05:02 05:02 15:00 WBC 3.2 L RBC 3.57 L Hgb 10.0 L Hct 29.3 L MCV 82 MCH 27.9 MCHC 33.9 RDW 16.8 H Plt Count 127 L Sodium 137.2 Potassium 3.5 L Chloride 108 H Carbon Dioxide 22 Anion Gap 7 BUN 10 Creatinine 0.94 Est GFR ( Amer) > 60 Glucose 89 Calcium 8.3 L Stool for White Cells NO WBCs SEEN Impressions: Abdomen/Pelvis CT 12/09/19 07:09 IMPRESSION: 1. Stable dilatation of the common bile duct and central intrahepatic bile ducts. Prior cholecystectomy. Distal stricture would be hard to exclude. No CT evidence of pancreatitis. 2. Slightly distended bladder. 3. Scattered diverticuli but no acute diverticulitis. Fluid filled cecum measuring up to 5.7 cm in diameter. Prominent right lower quadrant peritoneal lymph nodes most likely reactive. 4. Stable hepatomegaly. Assessment and Plan - Diagnosis (1) Enterocolitis Is this a current diagnosis for this admission?: Yes Plan: Blood cultures are negative at 48 hours. Stool cultures pending Tmax 101/48 hrs, 100/24 Patient is admitted to the medical floor. Continue gentle IV fluids. Antiemetics and analgesics as needed. Continue IV Zosyn. Day #2 Continue GI cocktails. Protonix twice daily. Trial Bentyl Follow-up chemistries. (2) Nausea & vomiting Is this a current diagnosis for this admission?: Yes Plan: Secondary 1. Management as above. (3) Myeloid leukemia Is this a current diagnosis for this admission?: Yes Plan: Per patient, last chemotherapy mid October. She is noted to have leukopenia, anemia (improved from baseline) and absolute neutrophil count of 1.5. Primary management per established oncologist, Dr. Russell. (4) Paced cardiac rhythm Is this a current diagnosis for this admission?: Yes Plan: Continue home dose sotalol and Eliquis. - Time Time Spent with patient: 15-24 minutes Medications reviewed and adjusted accordingly: Yes Anticipated Discharge Disposition: Home, Self Care Anticipated Discharge Timeframe: within 48 hours
[2019-12-12] MEDS: PANTOPRAZOLE SODIUM 40 MG TABLET.DR PO SCH ×2 (05:22→17:03)
[2019-12-12] MEDS: PIPERACILLIN SODIUM/TAZOBACTAM 3.375 GM in NORMAL SALINE 100 ML IV SCH ×2 (05:22→11:52)
[2019-12-12 06:43] LABS: HEMATOCRIT 29.1 % (36.0-47.0); HEMOGLOBIN 9.9 g/dL (12.0-15.5); MEAN CORPUSCULAR HEMOGLOBIN 27.9 pg (27.0-33.4); MEAN CORPUSCULAR HGB CONC 34.1 g/dL (32.0-36.0); MEAN CORPUSCULAR VOLUME 82 fl (80-97); PLATELET COUNT 128 10^3/uL (150-450); RED BLOOD COUNT 3.56 10^6/uL (3.72-5.28); RED CELL DISTRIBUTION WIDTH 16.9 % (11.5-14.0); WHITE BLOOD COUNT 3.1 10^3/uL (4.0-10.5)
[2019-12-12 06:59] LABS: ANION GAP 9 (5-19); BLOOD UREA NITROGEN 6 mg/dL (7-20); CALCIUM 8.3 mg/dL (8.4-10.2); CARBON DIOXIDE 21 mmol/L (22-30); CHLORIDE 106 mmol/L (98-107); GLUCOSE 91 mg/dL (75-110); POTASSIUM 3.7 mmol/L (3.6-5.0)
[2019-12-12] MEDS ORDERED: NORMAL SALINE 1000 ML 1,000 ML IV PRN (07:58)
[2019-12-12] MEDS: NICOTINE 14 MG/24 HR PATCH.TD24 TD SCH (09:33)
[2019-12-12] MEDS: SOTALOL HCL 80 MG TABLET PO SCH ×2 (09:34→21:11)
[2019-12-12] MEDS: APIXABAN 5 MG TABLET PO SCH ×2 (09:34→17:03)
--- NOTE | 2019-12-12 11:08 | PDOC PROGRESS REPORT ---
Subjective Progress Note for:: 12/12/19 Subjective:: Patient seems to be getting better. She wanted to see if she can get something other than her brat diet. Reason For Visit: ENTEROCOLITIS Physical Exam Vital Signs: Temp Pulse Resp BP Pulse Ox 97.9 F 60 16 135/61 H 100 12/12/19 08:35 12/12/19 07:21 12/12/19 07:21 12/12/19 07:21 12/12/19 07:21 Intake & Output 12/11/19 12/12/19 12/13/19 06:59 06:59 06:59 Intake Total 3057 400 Balance 3057 400 Weight 70.9 kg 68.4 kg General appearance: PRESENT: no acute distress, well-developed, well-nourished Head exam: PRESENT: atraumatic, normocephalic Eye exam: PRESENT: conjunctiva pink, EOMI, PERRLA. ABSENT: scleral icterus Ear exam: PRESENT: normal external ear exam Mouth exam: PRESENT: moist, tongue midline Neck exam: ABSENT: carotid bruit, JVD, lymphadenopathy, thyromegaly Respiratory exam: PRESENT: clear to auscultation heri. ABSENT: rales, rhonchi, wheezes Cardiovascular exam: PRESENT: RRR. ABSENT: diastolic murmur, rubs, systolic murmur Pulses: PRESENT: normal dorsalis pedis pul Vascular exam: PRESENT: normal capillary refill GI/Abdominal exam: PRESENT: normal bowel sounds, soft. ABSENT: distended, guarding, mass, organolmegaly, rebound, tenderness Rectal exam: PRESENT: deferred Extremities exam: PRESENT: full ROM. ABSENT: calf tenderness, clubbing, pedal edema Neurological exam: PRESENT: alert, awake, oriented to person, oriented to place, oriented to time, oriented to situation, CN II-XII grossly intact. ABSENT: motor sensory deficit Psychiatric exam: PRESENT: appropriate affect, normal mood. ABSENT: homicidal ideation, suicidal ideation Skin exam: PRESENT: dry, intact, warm. ABSENT: cyanosis, rash Results Laboratory Results: 12/12/19 06:17 12/12/19 06:17 12/11/19 12/12/19 12/12/19 15:00 06:17 06:17 WBC 3.1 L RBC 3.56 L Hgb 9.9 L Hct 29.1 L MCV 82 MCH 27.9 MCHC 34.1 RDW 16.9 H Plt Count 128 L Sodium 135.5 L Potassium 3.7 Chloride 106 Carbon Dioxide 21 L Anion Gap 9 BUN 6 L Creatinine 0.96 Est GFR ( Amer) > 60 Glucose 91 Calcium 8.3 L Stool for White Cells NO WBCs SEEN Impressions: Abdomen/Pelvis CT 12/09/19 07:09 IMPRESSION: 1. Stable dilatation of the common bile duct and central intr ahepatic bile ducts. Prior cholecystectomy. Distal stricture would be hard to exclude. No CT evidence of pancreatitis. 2. Slightly distended bladder. 3. Scattered diverticuli but no acute diverticulitis. Fluid filled cecum measuring up to 5.7 cm in diameter. Prominent right lower quadrant peritoneal lymph nodes most likely reactive. 4. Stable hepatomegaly. Assessment & Plan - Diagnosis (1) Enterocolitis Is this a current diagnosis for this admission?: Yes Plan: Seems to be improving. Told patient she may need another day or 2 of brat diet before they advance. But will allow primary team to decide on this. (2) Myeloid leukemia Qualifiers: Myeloid leukemia type: acute Leukemia Active/Remission status: without remission Qualified Code(s): C92.00 - Acute myeloblastic leukemia, not having achieved remission Is this a current diagnosis for this admission?: Yes Plan: Further therapy as an outpatient - Time Time Spent with patient: 15-24 minutes
--- NOTE | 2019-12-12 14:52 | PDOC PROGRESS REPORT ---
Subjective Progress Note for:: 12/12/19 Subjective:: Patient was seen on afternoon rounds just after lunch. She is found resting in bed, maintaining oxygen saturations, on room air. She states that she is feeling much better; no further episodes of nausea/vomiting. Epigastric pain is much improved. States she is hungry and requests to advance diet. She has had a fever; T-max 100.8/48 hrs Otherwise, she denies chills, chest pain, palpitations, dyspnea, orthopnea, cough. She has no other questions or concerns at this time. No concerns per nursing. Reason For Visit: ENTEROCOLITIS Physical Exam Vital Signs: Temp Pulse Resp BP Pulse Ox 98.0 F 61 16 141/70 H 99 12/12/19 10:57 12/12/19 10:57 12/12/19 10:57 12/12/19 10:57 12/12/19 10:57 Intake & Output 12/11/19 12/12/19 12/13/19 06:59 06:59 06:59 Intake Total 3057 400 Balance 3057 400 Weight 70.9 kg 68.4 kg General appearance: PRESENT: no acute distress, cooperative, well-developed, well-nourished Head exam: PRESENT: atraumatic, normocephalic Eye exam: PRESENT: conjunctiva pink, EOMI, PERRLA. ABSENT: scleral icterus Mouth exam: PRESENT: moist, tongue midline Teeth exam: PRESENT: poor dentation Respiratory exam: PRESENT: clear to auscultation heri, symmetrical, unlabored. ABSENT: rales, rhonchi, wheezes Cardiovascular exam: PRESENT: RRR, +S1, +S2. ABSENT: diastolic murmur, rubs, systolic murmur Vascular exam: PRESENT: normal capillary refill GI/Abdominal exam: PRESENT: normal bowel sounds, soft, tenderness - improved. ABSENT: distended, guarding, mass, organolmegaly, rebound Extremities exam: PRESENT: full ROM. ABSENT: calf tenderness, clubbing, pedal edema Neurological exam: PRESENT: alert, awake, oriented to person, oriented to place, oriented to time, oriented to situation, CN II-XII grossly intact. ABSENT: motor sensory deficit Psychiatric exam: PRESENT: appropriate affect, normal mood. ABSENT: homicidal ideation, suicidal ideation Skin exam: PRESENT: dry, intact, warm. ABSENT: cyanosis, rash Results Laboratory Results: 12/12/19 06:17 12/12/19 06:17 12/11/19 12/12/19 12/12/19 15:00 06:17 06:17 WBC 3.1 L RBC 3.56 L Hgb 9.9 L Hct 29.1 L MCV 82 MCH 27.9 MCHC 34.1 RDW 16.9 H Plt Count 128 L Sodium 135.5 L Potassium 3.7 Chloride 106 Carbon Dioxide 21 L Anion Gap 9 BUN 6 L Creatinine 0.96 Est GFR ( Amer) > 60 Glucose 91 Calcium 8.3 L Stool for White Cells NO WBCs SEEN Impressions: Abdomen/Pelvis CT 12/09/19 07:09 IMPRESSION: 1. Stable dilatation of the common bile duct and central intrahepatic bile ducts. Prior cholecystectomy. Distal stricture would be hard to exclude. No CT evidence of pancreatitis. 2. Slightly distended bladder. 3. Scattered diverticuli but no acute diverticulitis. Fluid filled cecum measuring up to 5.7 cm in diameter. Prominent right lower quadrant peritoneal lymph nodes most likely reactive. 4. Stable hepatomegaly. Assessment and Plan - Diagnosis (1) Enterocolitis Is this a current diagnosis for this admission?: Yes Plan: Blood cultures are negative at 72 hours. Stool cultures pending Tmax 100.8/24 hrs Patient is admitted to the medical floor. Continue gentle IV fluids. Antiemetics and analgesics as needed. Received Zosyn x 2 days; transition to p.o. Augmentin today. Continue GI cocktails prn. Protonix twice daily. Trial Bentyl Advancing diet today Follow-up chemistries. (2) Nausea & vomiting Is this a current diagnosis for this admission?: Yes Plan: Resolved. Secondary 1. Management as above. (3) Myeloid leukemia Qualifiers: Myeloid leukemia type: acute Leukemia Active/Remission status: without remission Qualified Code(s): C92.00 - Acute myeloblastic leukemia, not having achieved remission Is this a current diagnosis for this admission?: Yes Plan: Per patient, last chemotherapy mid October. She is noted to have leukopenia, anemia (improved from baseline) and absolute neutrophil count of 1.5. Primary management per established oncologist, Dr. Russell. (4) Paced cardiac rhythm Is this a current diagnosis for this admission?: Yes Plan: Continue home dose sotalol and Eliquis. - Time Time Spent with patient: 15-24 minutes Medications reviewed and adjusted accordingly: Yes Anticipated Discharge Disposition: Home, Self Care Anticipated Discharge Timeframe: within 24 hours
[2019-12-12] MEDS: AMOXICILLIN TR/POT CLAVULANATE 500-125 MG TAB PO SCH (21:11)
[2019-12-13] MEDS: AMOXICILLIN TR/POT CLAVULANATE 500-125 MG TAB PO SCH (05:27)
[2019-12-13] MEDS: PANTOPRAZOLE SODIUM 40 MG TABLET.DR PO SCH (05:27)
[2019-12-13 06:31] LABS: HEMATOCRIT 29.7 % (36.0-47.0); HEMOGLOBIN 10.2 g/dL (12.0-15.5); MEAN CORPUSCULAR HEMOGLOBIN 28.1 pg (27.0-33.4); MEAN CORPUSCULAR HGB CONC 34.4 g/dL (32.0-36.0); MEAN CORPUSCULAR VOLUME 82 fl (80-97); PLATELET COUNT 126 10^3/uL (150-450); RED BLOOD COUNT 3.64 10^6/uL (3.72-5.28); WHITE BLOOD COUNT 3.8 10^3/uL (4.0-10.5)
[2019-12-13 07:00] LABS: ANION GAP 7 (5-19); BLOOD UREA NITROGEN 5 mg/dL (7-20); CALCIUM 8.5 mg/dL (8.4-10.2); CARBON DIOXIDE 22 mmol/L (22-30); CHLORIDE 106 mmol/L (98-107); GLUCOSE 100 mg/dL (75-110); POTASSIUM 3.7 mmol/L (3.6-5.0)
[2019-12-13] MEDS: NICOTINE 14 MG/24 HR PATCH.TD24 TD SCH (09:11)
[2019-12-13] MEDS: SOTALOL HCL 80 MG TABLET PO SCH (09:11)
[2019-12-13] MEDS: APIXABAN 5 MG TABLET PO SCH (09:11)
[2019-12-13 12:56] VITALS: BP 146/64
--- NOTE | 2019-12-15 10:43 | PDOC DISCHARGE SUMMARY ---
Impression - Admit/DC Date/PCP Admission Date/Primary Care Provider: 12/10/19 16:46 CARLA LUA Discharge Date: 12/13/19 - Discharge Diagnosis (1) Enterocolitis Is this a current diagnosis for this admission?: Yes (2) Nausea & vomiting Is this a current diagnosis for this admission?: Yes (3) Myeloid leukemia Is this a current diagnosis for this admission?: Yes (4) Paced cardiac rhythm Is this a current diagnosis for this admission?: Yes - Additional Information Resuscitation Status: Full Code Discharge Diet: As Tolerated, Regular Discharge Activity: Activity As Tolerated, Balance Activity w/Rest Referrals: ADRIEL RUSSELL MD [ACTIVE STAFF] - Prescriptions: Amox Tr/Potassium Clavulanate [Augmentin "500" Tablet] 1 tab PO Q8 #18 tablet Dicyclomine HCl [Bentyl 20 mg Tablet] 20 mg PO Q6HP PRN #20 tablet PRN Reason: Nicotine [Nicoderm 14 mg/24 Hr Transdermal Patch] 1 each TD DAILY #30 patch.td24 Ondansetron [Zofran Odt 4 mg Tablet] 1 - 2 tab PO Q4HP PRN #20 tab.rapdis PRN Reason: Home Medications: Apixaban [Eliquis 5 mg Tablet] 5 mg PO BID 12/09/19 Pantoprazole Sodium [Protonix [address] Tablet] 40 mg PO DAILY 12/09/19 Sotalol HCl [Betapace 80 mg Tablet] 40 mg PO BID 12/09/19 Acetaminophen [Tylenol 650 mg Supp] 650 mg MS Q4HP PRN supp.rect 12/13/19 Amox Tr/Potassium Clavulanate [Augmentin "500" Tablet] 1 tab PO Q8 #18 tablet 12/13/19 Dicyclomine HCl [Bentyl 20 mg Tablet] 20 mg PO Q6HP PRN #20 tablet 12/13/19 Nicotine [Nicoderm 14 mg/24 Hr Transdermal Patch] 1 each TD DAILY #30 patch.td24 12/13/19 Ondansetron [Zofran Odt 4 mg Tablet] 1 - 2 tab PO Q4HP PRN #20 tab.rapdis 12/13/19 History of Present Illiness History of Present Illness: ANAT FARLEY is a 79 year old female, who is a pleasant but poor historian, with a past medical history significant for myeloid leukemia, last chemotherapy in October followed by Dr. Baldwin, likely atrial fibrilation (on sotalol, currently paced rhythm, anticoagulated on Eliquis), remote upper GI bleed, and GERD who presented to the emergency department today with a complaint of 3 to 4 days of nausea and vomiting with decreased tolerance of fluids. Evaluation in the emergency department revealed stable vital signs, Mild leukopenia (2.3), anemia (hemoglobin 11.9; improved from baseline), and absolute neutrophil 1.5. Chemistry essentially unremarkable other than mild dehydration (NA 133.6, BUN 21, creatinine 1.16, EGFR 54). Abdominal pelvic CT revealed scattered diverticuli without diverticulitis, fluid-filled cecum measuring 5.7 cm in diameter and a prominent right lower quadrant peritoneal lymph node there most likely reactive. Stable hepatomegaly. ED provider spoke with Dr. Russell; recommends admission for hydration. Patient is referred to the hospitalist services for further evaluation and management of the above. Hospital Course Hospital Course: (1) Enterocolitis Improved; decreased abd discomfort, n/v/d, and now tolerating 75-100% of low residue diet. Blood cultures are negative at 72 hours. Stool cultures pending Afebrile x 5 days Patient was admitted to the medical floor. SHe was supported with gentle IV fluids, Antiemetics and analgesics, as needed. Received Zosyn x 2 days; have transition to p.o. Augmentin to complete course following discharge Protonix twice daily. Trial Bentyl; some relief noted. Have provided Rx. Diet was slowly advanced; now tolerating a low residue diet well. (2) Nausea & vomiting Resolved. Secondary 1. Management as above. (3) Myeloid leukemia Per patient, last chemotherapy mid October. She is noted to have leukopenia, anemia (improved from baseline) and absolute neutrophil count of 1.5. Primary management per established oncologist, Dr. Russell. Follow up as scheduled. (4) Paced cardiac rhythm Continue home dose sotalol and Eliquis. Physical Exam Vital Signs: Temp Pulse Resp BP Pulse Ox 98.0 F 65 18 146/64 H 100 12/13/19 11:54 12/13/19 11:54 12/13/19 11:54 12/13/19 11:54 12/13/19 11:54 Intake & Output 12/14/19 12/15/19 12/16/19 06:59 06:59 06:59 Intake Total 460 Balance 460 General appearance: PRESENT: no acute distress, cooperative, well-developed, well-nourished Head exam: PRESENT: atraumatic, normocephalic Eye exam: PRESENT: conjunctiva pink, EOMI, PERRLA. ABSENT: scleral icterus Mouth exam: PRESENT: moist, tongue midline Teeth exam: PRESENT: poor dentation Respiratory exam: PRESENT: clear to auscultation heri, symmetrical, unlabored. ABSENT: rales, rhonchi, wheezes Cardiovascular exam: PRESENT: RRR, +S1, +S2. ABSENT: diastolic murmur, rubs, systolic murmur Vascular exam: PRESENT: normal capillary refill GI/Abdominal exam: PRESENT: normal bowel sounds, soft, tenderness - Intermittent, mild, generalized abdominal tenderness; improved. ABSENT: distended, guarding, mass, organolmegaly, rebound Rectal exam: PRESENT: deferred Extremities exam: PRESENT: full ROM. ABSENT: calf tenderness, clubbing, pedal edema Musculoskeletal exam: PRESENT: ambulatory Neurological exam: PRESENT: alert, awake, oriented to person, oriented to place, oriented to time, oriented to situation, CN II-XII grossly intact. ABSENT: motor sensory deficit Psychiatric exam: PRESENT: appropriate affect, normal mood. ABSENT: homicidal ideation, suicidal ideation Skin exam: PRESENT: dry, intact, warm. ABSENT: cyanosis, rash Results Laboratory Results: WBC 3.8 10^3/uL (4.0-10.5) L 12/13/19 06:12 RBC 3.64 10^6/uL (3.72-5.28) L 12/13/19 06:12 Hgb 10.2 g/dL (12.0-15.5) L 12/13/19 06:12 Hct 29.7 % (36.0-47.0) L 12/13/19 06:12 MCV 82 fl (80-97) 12/13/19 06:12 MCH 28.1 pg (27.0-33.4) 12/13/19 06:12 MCHC 34.4 g/dL (32.0-36.0) 12/13/19 06:12 RDW 17.0 % (11.5-14.0) H 12/13/19 06:12 Plt Count 126 10^3/uL (150-450) L 12/13/19 06:12 Lymph % (Auto) Not Reportable 12/10/19 07:10 [place] % (Auto) Not Reportable 12/10/19 07:10 Eos % (Auto) Not Reportable 12/10/19 07:10 Baso % (Auto) Not Reportable 12/10/19 07:10 Absolute Neuts (auto) Not Reportable 12/10/19 07:10 Absolute Lymphs (auto) Not Reportable 12/10/19 07:10 Absolute Monos (auto) Not Reportable 12/10/19 07:10 Absolute Eos (auto) Not Reportable 12/10/19 07:10 Absolute Basos (auto) Not Reportable 12/10/19 07:10 Total Counted 100 12/10/19 07:10 Seg Neutrophils % Not Reportable 12/10/19 07:10 Seg Neuts % (Manual) 47 % (42-78) 12/10/19 07:10 Lymphocytes % (Manual) 21 % (13-45) 12/10/19 07:10 Atypical Lymphs % 8 % (0) 12/10/19 07:10 Monocytes % (Manual) 4 % (3-13) 12/10/19 07:10 Eosinophils % (Manual) 1 % (0-6) 12/10/19 07:10 Basophils % (Manual) 0 % (0-2) 12/10/19 07:10 Immature Leukocytes % 19 % (0) H 12/10/19 07:10 Abs Neuts (Manual) 1.4 10^3/uL (1.7-8.2) L 12/10/19 07:10 Abs Lymphs (Manual) 0.8 10^3/uL (0.5-4.7) 12/10/19 07:10 Abs Monocytes (Manual) 0.1 10^3/uL (0.1-1.4) 12/10/19 07:10 Absolute Eos (Manual) 0.0 10^3/uL (0.0-0.6) 12/10/19 07:10 Abs Basophils (Manual) 0.0 10^3/uL (0.0-0.2) 12/10/19 07:10 Toxic Vacuolation PRESENT 12/10/19 07:10 Large Platelets PRESENT 12/10/19 07:10 Platelet Comment DECREASED 12/10/19 07:10 Polychromasia SLIGHT 12/10/19 07:10 Poikilocytosis SLIGHT 12/10/19 07:10 Anisocytosis 1+ 12/10/19 07:10 Tear Drop Cells SLIGHT 12/10/19 07:10 Ovalocytes SLIGHT 12/10/19 07:10 Schistocytes SLIGHT 12/10/19 07:10 Sodium 135.4 mmol/L (137-145) L 12/13/19 06:12 Potassium 3.7 mmol/L (3.6-5.0) 12/13/19 06:12 Chloride 106 mmol/L (98-107) 12/13/19 06:12 Carbon Dioxide 22 mmol/L (22-30) 12/13/19 06:12 Anion Gap 7 (5-19) 12/13/19 06:12 BUN 5 mg/dL (7-20) L 12/13/19 06:12 Creatinine 0.89 mg/dL (0.52-1.25) 12/13/19 06:12 Est GFR ( Amer) > 60 (>60) 12/13/19 06:12 Est GFR (MDRD) Non-Af > 60 (>60) 12/13/19 06:12 Glucose 100 mg/dL (75-110) 12/13/19 06:12 Calcium 8.5 mg/dL (8.4-10.2) 12/13/19 06:12 Total Bilirubin 0.7 mg/dL (0.2-1.3) 12/09/19 08:00 Direct Bilirubin 0.3 mg/dL (0.0-0.4) 12/09/19 08:00 Neonat Total Bilirubin Not Reportable 12/09/19 08:00 Neonat Direct Bilirubin Not Reportable 12/09/19 08:00 Neonat Indirect Bili Not Reportable 12/09/19 08:00 AST 35 U/L (14-36) 12/09/19 08:00 ALT 16 U/L (<35) 12/09/19 08:00 Alkaline Phosphatase 102 U/L (38-126) 12/09/19 08:00 Total Protein 8.2 g/dL (6.3-8.2) 12/09/19 08:00 Albumin 4.1 g/dL (3.5-5.0) 12/09/19 08:00 Lipase 28.8 U/L (23-300) 12/09/19 08:00 Urine Color YELLOW 12/09/19 13:42 Urine Appearance CLEAR 12/09/19 13:42 Urine pH 7.0 (5.0-9.0) 12/09/19 13:42 Ur Specific [place] 1.029 12/09/19 13:42 Urine Protein NEGATIVE mg/dL (NEGATIVE) 12/09/19 13:42 Urine Glucose (UA) NEGATIVE mg/dL (NEGATIVE) 12/09/19 13:42 Urine Ketones NEGATIVE mg/dL (NEGATIVE) 12/09/19 13:42 Urine Blood NEGATIVE (NEGATIVE) 12/09/19 13:42 Urine Nitrite NEGATIVE (NEGATIVE) 12/09/19 13:42 Urine Bilirubin NEGATIVE (NEGATIVE) 12/09/19 13:42 Urine Urobilinogen NEGATIVE mg/dL (<2.0) 12/09/19 13:42 Ur Leukocyte Esterase NEGATIVE (NEGATIVE) 12/09/19 13:42 Urine WBC (Auto) 2 /HPF 12/09/19 13:42 Urine RBC (Auto) 1 /HPF 12/09/19 13:42 Squamous Epi Cells Auto 1 /HPF 12/09/19 13:42 Urine Mucus (Auto) RARE /LPF 12/09/19 13:42 Urine Ascorbic Acid NEGATIVE (NEGATIVE) 12/09/19 13:42 Stool for White Cells NO WBCs SEEN 12/11/19 15:00 SARS-CoV-2 (PCR) NEGATIVE (NEGATIVE) 12/11/19 00:20 Slides for Path Review SEE COMMENT 12/10/19 07:10 Impressions: Abdomen/Pelvis CT 12/09/19 07:09 IMPRESSION: 1. Stable dilatation of the common bile duct and central intrahepatic bile ducts. Prior cholecystectomy. Distal stricture would be hard to exclude. No CT evidence of pancreatitis. 2. Slightly distended bladder. 3. Scattered diverticuli but no acute diverticulitis. Fluid filled cecum measuring up to 5.7 cm in diameter. Prominent right lower quadrant peritoneal lymph nodes most likely reactive. 4. Stable hepatomegaly. Plan Plan of Treatment: Patient is discharged home in stable condition. She is recommended to follow-up with her primary care provider within [address] Oh as scheduled. She is advised to eat a soft/bland diet, advance slowly as tolerated. Drink plenty of fluids. Take medications as prescribed. Return to the emergency department as needed for concerning symptoms Time Spent: Greater than 30 Minutes Stroke Is this a Stroke Patient?: No Acute Heart Failure - Is this a Heart Failure Patient?: No
== END 2019-12-13 12:57 | disposition home or self-care (01) | DRG 392 ==
LOC: ER 05:50 → EH 11:56 → 4S 15:39 → OBSVTOIN 12-10 16:46
PROVIDERS: ADMIT Internal Medicine; ATTEND Registered Nurse
DX: K52.9 Noninfective gastroenteritis and colitis, unspecified (principal); C92.00 Acute myeloblastic leukemia, not having achieved remission; K21.9 Gastro-esophageal reflux disease without esophagitis; D63.0 Anemia in neoplastic disease; E86.0 Dehydration; I10 Essential (primary) hypertension; M06.9 Rheumatoid arthritis, unspecified; Z60.2 Problems related to living alone; Z11.59 Encounter for screening for other viral diseases; Z79.899 Other long term (current) drug therapy; Z79.01 Long term (current) use of anticoagulants; Z92.21 Personal history of antineoplastic chemotherapy; Z87.11 Personal history of peptic ulcer disease; Z95.0 Presence of cardiac pacemaker; Z88.8 Allergy status to other drugs, medicaments and biological substances
CPT/HCPCS: 36415; 74177; 80048; 80053; 81001; 83690; 85025; 85027; 87040; 87045; 87205; 87635; 89055; 93005; 93010; 96361; 96365; 96375; 99285; C9803; G0378; J2270; J2405; J2543; J2550; J3490; J7030; J7050; J7120; S0028